=== PATIENT | male | born 1960 | race Caucasian/White ===

== ENCOUNTER → 2017-09-27 | Outpatient (CLI) | payer BC | END | disposition home or self-care (01) | LOC: KCIC MRI 09:21 | DX: S83.242A Other tear of medial meniscus, current injury, left knee, initial encounter (principal); M17.12 Unilateral primary osteoarthritis, left knee; M22.42 Chondromalacia patellae, left knee; M25.462 Effusion, left knee; I10 Essential (primary) hypertension; X58.XXXA Exposure to other specified factors, initial encounter; Y93.89 Activity, other specified; Y92.89 Other specified places as the place of occurrence of the external cause; Y99.8 Other external cause status | CPT/HCPCS: 73721 ==

== ENCOUNTER 2017-11-18 05:52 | Day surgery (SDC) | payer BC ==
[~2017-11-18 05:52] MED LIST: GENT5DRO3 OU; LOSA50TA6 PO; OMEP20TA63 PO
[2017-11-18] MEDS ORDERED: BUPIVACAINE-EPI 0.5%-1:200000 50 ML VIAL. ONE (06:11)
[2017-11-18] MEDS ORDERED: MORPHINE SULFATE 2 MG/ML VIAL. IV PRN (07:00)
[2017-11-18] MEDS ORDERED: fentaNYL PF VIAL 100 MCG/2 ML VIAL IV PRN ×2 (07:00)
[2017-11-18] MEDS ORDERED: PROCHLORPERAZINE 10 MG/2 ML VIAL. IV PRN (07:00)
[2017-11-18] MEDS ORDERED: ONDANSETRON PF 4 MG/2 ML VIAL. IV PRN (07:00)
[2017-11-18] MEDS ORDERED: IV RINGERS,LACTATED 1000ML 1,000 ML IV SCH (07:00)
[2017-11-18] MEDS ORDERED: LIDOCAINE 1% PF 2 ML VIAL. ID PRN (07:00)
[2017-11-18] MEDS ORDERED: HYDROmorphone 2 MG/ML VIAL IV PRN (07:00)
[2017-11-18] MEDS ORDERED: PROPOFOL 20 ML IV ONE (07:03)
[2017-11-18] MEDS ORDERED: ONDANSETRON PF 4 MG/2 ML VIAL. ONE ×2 (07:05)
[2017-11-18] MEDS ORDERED: DEXAMETHASONE SOD PHOS 20 MG/5 ML VIAL. ONE (07:05)
[2017-11-18] MEDS ORDERED: LIDOCAINE 2% PF Vial for OR 5 ML VIAL. ONE (07:05)
[2017-11-18] MEDS ORDERED: fentaNYL PF VIAL 100 MCG/2 ML VIAL ONE (07:06)
[2017-11-18] MEDS ORDERED: MIDAZOLAM HCL/PF 2 MG/2 ML VIAL. ONE (07:06)
--- NOTE | 2017-11-18 07:51 | DISCH ---
DISCHARGE INSTRUCTIONS Condition on Discharge Condition on Discharge: Stable Activity After Discharge Activity Instructions for Disc: Other, see below (slow advance to activities as tolerated) Weight Bearing Status after Di: As tolerated Diet after Discharge Diet after Discharge: Regular Wound Incision Care Wound/Incision Care: Ice to area for comfort, Change dressing (remove dressing in 2 days may then shower, no soaking until sutures removed) Contacting the DRMike after DC Call your doctor for: Concerns you may have Follow-Up Follow up with: Maria 10 days RACHEL ASHLEY MD Nov 18, 2017 07:51
[2017-11-18] MEDS ORDERED: HYDR-965 PO (07:52)
[2017-11-18] MEDS ORDERED: ePHEDrine PF IN SALINE 50 MG/5 ML DISP.SYRIN IV ONE (08:16)
[2017-11-18] MEDS ORDERED: BUPIVAC MPF-EPI 0.5%-1:200000 30 ML VIAL. INJ ONE (08:30)
[2017-11-18] MEDS ORDERED: KETOROLAC 30 MG/ML VIAL. ONE (08:31)
[2017-11-18] MEDS ORDERED: KETOROLAC 30 MG/ML VIAL. IV ONE (08:45)
--- NOTE | 2017-11-18 08:51 | PDOC4 ---
Operative Note Operative Note Date of surgery: 11/18/2017 Preoperative diagnosis: Medial meniscus tear left knee Postoperative diagnosis: Same Operative procedure: Left knee arthroscopy partial medial meniscectomy Anesthesia: Gen. Estimated blood loss: 5 mL Complications: None Operative indications: Sudhakar is a 56-year-old male with pain swelling mechanical symptoms particularly with pivoting and twisting on his left knee MRI confirmed the clinical suspicion of a medial meniscus tear. I had gone over with him the typical treatment with knee arthroscopy partial medial meniscectomy. The fact that I cannot undo any degenerative type changes which I think are generally minimal in his knee. We also covered the risks of possible infection continued pain nerve or blood vessel damage medical or other anesthetic complications among others. All his questions were answered he wishes to proceed with surgical evaluation and treatment Operative text: Patient was identified procedure verified patient placed in the supine position on the operating table. After adequate amounts of general anesthesia were administered a thigh tourniquet was placed in the left lower extremity was prepped and draped in standard sterile fashion. After timeout was performed patient procedure identified and verified the left lower extremity was exsanguinated by Esmarch bandage tourniquet inflated to 250 mmHg lateral portal was established a medial portal established using spinal needle localization and the knee joint was systematically examined. Patellofemoral joint was noted to be in excellent condition with no maltracking no loose bodies noted in the gutters or suprapatellar pouch medial meniscus was found to have a displaceable tear posterior horn of the medial meniscus which was trimmed back to stable tissue using arthroscopic punch and shaver to radiused the area to eliminate further stress risers. He had some minimal chondral fraying on the medial femoral condyle which was gently trimmed with arthroscopic shaver lateral meniscus and lateral compartment cartilage was well- preserved as was the ACL. The knee was toured again to verify no loose bodies were present the knee was drained of arthroscopic fluid portals closed with nylon suture and a total of about 25 mL of half percent plain Marcaine were infused into the fat pad and joint capsule area. Sterile dressings were applied. Toes were noted be warm pink find deflation of tourniquet after total tourniquet time approximately 16 minutes. He was returned recovery room in stable condition having tolerated procedure well RACHEL ASHLEY MD Nov 18, 2017 08:51
[2017-11-18 09:30] VITALS: BP 142/79
[2017-11-18] MEDS ORDERED: oxyCODONE/APAP 7.5/325 1 TAB TABLET PO PRN (09:30)
== END 2017-11-18 09:55 | disposition home or self-care (01) ==
LOC: SURG 05:52
PROVIDERS: ATTEND Orthopaedic Surgery
DX: S83.242A Other tear of medial meniscus, current injury, left knee, initial encounter (principal); I10 Essential (primary) hypertension; K21.9 Gastro-esophageal reflux disease without esophagitis; Z98.890 Other specified postprocedural states; F17.210 Nicotine dependence, cigarettes, uncomplicated; Z72.89 Other problems related to lifestyle; Z79.899 Other long term (current) drug therapy; Z88.8 Allergy status to other drugs, medicaments and biological substances; Z98.42 Cataract extraction status, left eye; Z98.41 Cataract extraction status, right eye; Z96.1 Presence of intraocular lens; X50.1XXA Overexertion from prolonged static or awkward postures, initial encounter; Y93.89 Activity, other specified; Y92.89 Other specified places as the place of occurrence of the external cause; Y99.8 Other external cause status
CPT/HCPCS: 29881; A7015; C1782; J0690; J1100; J1885; J2001; J2250; J2405; J2704; J3010; J3490

== ENCOUNTER 2020-10-25 21:16 | Inpatient (IN) | payer BC ==
[~2020-10-25] VITALS: Ht 182.9 cm; Wt 104.5 kg
[~2020-10-25 21:16] MED LIST changes: +HYDR-3165 PO; +LOSA-73 PO; -LOSA50TA6 PO
--- NOTE | 2020-10-25 21:28 | RAD ---
Exam: CT head INDICATION: Left-sided weakness TECHNIQUE: Sequential axial images through the head were obtained without the administration of IV co ntrast. Exposure: One or more of the following in the visualized dose reduction techniques were utilized for this examination: 1. Automated exposure control 2. Adjustment of the MA and/or KV according to patient size 3. Use of iterative of reconstructive technique Comparisons: None FINDINGS: There is a 2.0 x 1.6 cm hemorrhage noted within the right basal ganglia. There is no midline shift or sulcal effacement. Mild patchy evidence in the periventricular white matter. No acute vascular territory infarction is i dentified. Dorado-white distinction is preserved. The ventricular system is within normal limits without compression hydrocephalus. The basal cisterns are well maintained. The visualized portions of the paranasal sinuses and mastoid air cells are well-pneumatized. No acute fractures. IMPRESSION: A 2.0 x 1.6 cm hemorrhage noted within the right basal ganglia. Correlate for hypertension. FOR INTERNAL CODING PURPOSES Critical result: Findings discussed with González at 10/25/2020 9:25 PM. RESULT CODE: (C) Electronically signed by: Marce Dodd MD (10/25/2020 9:26 PM) [facility]
[2020-10-25 21:34] LABS: BASO % 1 % (0-3); EOS # 0.1 x10^3/uL (0.0-0.7); EOS % 1 % (0-3); HEMATOCRIT 42.8 % (39.0-53.0); HEMOGLOBIN 14.7 g/dL (13.0-17.5); LYMPH # 1.7 x10^3/uL (1.0-4.8); LYMPH % 22 % (24-48); MEAN CORPUSCULAR HEMOGLOBIN 35 pg (25-35); MEAN CORPUSCULAR HGB CONC 34 g/dL (31-37); MEAN CORPUSCULAR VOLUME 102 fL (79-100); MONO # 0.6 x10^3/uL (0.0-1.1); MONO % 9 % (0-9); NEUT % 68 % (31-73); PLATELET COUNT 164 x10^3/uL (140-400); RED BLOOD COUNT 4.19 x10^6/uL (4.30-5.70); RED CELL DISTRIBUTION WIDTH 12.9 % (11.5-14.5); WHITE BLOOD COUNT 7.4 x10^3/uL (4.0-11.0)
[2020-10-25 21:43] LABS: PROTHROMBIN TIME PATIENT 12.1 SEC (11.7-14.0)
--- NOTE | 2020-10-25 21:43 | PHYS DOC ---
General Adult EDM: Chief Complaint: NEURO SYMPTOMS/DEFICITS HPI: HPI: Patient is a 59 year old male with past medical history of HTN who presents with left-sided weakness. Symptoms started 8:19 PM. Witnessed by his . Started with facial droop and progressed rapidly to the left-sided weakness. He slumped in his chair. called EMS. On arrival the left-sided paralysis was evident to EMS. In route he began to have slurred speech. He is not on any blood thinning medications. No aspirin or Plavix. Only takes medications for hypertension, which she cannot recall at this time. No history of previous stroke. Review of Systems: Review of Systems: Constitutional: Denies fever or chills. [] Eyes: Denies change in visual acuity. [] HENT: Denies nasal congestion or sore throat. [] Respiratory: Denies cough or shortness of breath. [] Cardiovascular: Denies chest pain or edema. [] GI: Denies abdominal pain, nausea, vomiting, bloody stools or diarrhea. [] : Denies dysuria. [] Musculoskeletal: Denies back pain or joint pain. [] Integument: Denies rash. [] Neurologic: + Left-sided weakness, facial droop, and slurred speech [] Endocrine: Denies polyuria or polydipsia. [] Lymphatic: Denies swollen glands. [] Psychiatric: Denies depression or anxiety. [] Heart Score: C/O Chest Pain: No Risk Factors: Risk Factors: DM, Current or recent (<one month) smoker, HTN, HLP, family history of CAD, obesity. Risk Scores: Score 0 - 3: 2.5% MACE over next 6 weeks - Discharge Home Score 4 - 6: 20.3% MACE over next 6 weeks - Admit for Clinical Observation Score 7 - 10: 72.7% MACE over next 6 weeks - Early Invasive Strategies Allergies: Allergies: Allergies Coded Allergies Type Severity Reaction Last Updated Verified valsartan Allergy Intermediate MYALGIAS 11/18/17 Yes Physical Exam: PE: Constitutional: Well developed, well nourished, no acute distress. [] HENT: Normocephalic, atraumatic, bilateral external ears normal, oropharynx moist, no oral exudates, nose normal. [] Eyes: PERRLA, EOMI, intact visual kim. [] Neck: Normal range of motion, no tenderness, supple, no stridor. [] Cardiovascular:.Tachycardia. regular rhythm, no murmur [] Lungs & Thorax: Bilateral breath sounds clear to auscultation [] Abdomen: Bowel sounds normal, soft, no tenderness, no masses, no pulsatile masses. [] Skin: Warm, dry, no erythema, no rash. [] Back: No tenderness, no CVA tenderness. [] Extremities: No tenderness, no cyanosis, no clubbing, ROM intact, + bilateral pitting edema. [] Neurologic: Alert and oriented. Follows commands. Left-sided dense paralysis. Left-sided facial droop. Mild dysarthria/slurred speech. No aphasia. Complete left-sided sensory loss. NIH = 14 Psychologic: Affect normal, judgement normal, mood normal. [] EKG: EKG: Sinus rhythm. Rate 94. RBBB pattern. No acute ischemic changes. Normal axis. Normal intervals [] Radiology/Procedures: Radiology/Procedures: [] Impression: [facility] [address] [place] [address] IMAGING REPORT Signed PATIENT: REHAN GALICIA ACCOUNT: [id number] : 1960 LOCATION: ER AGE: 59 SEX: M EXAM STATUS: PRE ER ORD. PHYSICIAN: LIEN DAUGHERTY MD REASON: L sided weakness PROCEDURE: CT CODE STROKE HEAD WO Exam: CT head INDICATION: Left-sided weakness TECHNIQUE: Sequential axial images through the head were obtained without the administration of IV contrast. Exposure: One or more of the following in the visualized dose reduction techniques were utilized for this examination: 1. Automated exposure control 2. Adjustment of the MA and/or KV according to patient size 3. Use of iterative of reconstructive technique Comparisons: None FINDINGS: There is a 2.0 x 1.6 cm hemorrhage noted within the right basal ganglia. There is no midline shift or sulcal effacement. Mild patchy evidence in the periventricular white matter. No acute vascular territory infarction is identified. Dorado-white distinction is preserved. The ventricular system is within normal limits without compression hydrocephalus. The basal cisterns are well maintained. The visualized portions of the paranasal sinuses and mastoid air cells are well- pneumatized. No acute fractures. IMPRESSION: A 2.0 x 1.6 cm hemorrhage noted within the right basal ganglia. Correlate for hypertension. FOR INTERNAL CODING PURPOSES Critical result: Findings discussed with González at 10/25/2020 9:25 PM. RESULT CODE: (C) Electronically signed by: Marce Crouch MD (10/25/2020 9:26 PM) [facility] DICTATED and SIGNED BY: MARCE CROUCH MD DATE: 10/25/20 [id number] 0 [facility] [address] [place] [address] IMAGING REPORT Signed PATIENT: REHAN GALICIA ACCOUNT: [id number] : 1960 LOCATION: ER AGE: 59 SEX: M EXAM STATUS: REG ER ORD. PHYSICIAN: LIEN DAUGHERTY MD REASON: R thalamic bleed. Neurology requested to eval for AVM PROCEDURE: CT ANGIOGRAPHY HEAD AND NECK Exam: CTA head and neck INDICATION: Right thalamic bleeding TECHNIQUE: Sequential axial images through the head and neck obtained following the administration of 75 mL of Omni 300 IV contrast. Sagittal and coronal reformatted images were reconstructed from the axial data and reviewed. 3-D reformatted images were reconstructed from the axial data and reviewed. Exposure: One or more of the following in the visualized dose reduction techniques were utilized for this examination: 1. Automated exposure control 2. Adjustment of the MA and/or KV according to patient size 3. Use of iterative of reconstructive technique Comparisons: CT head without contrast FINDINGS: Visualized portions of the thoracic aorta are unremarkable. Standard three- vessel arch anatomy. Right common carotid artery is patent without evidence of stenosis, occlusion. Mild plaque at the origin of the right internal carotid artery stenosis stenosis. Left common carotid artery is patent without evidence of stenosis, occlusion or aneurysm. Mild plaque at the origin of the left internal carotid artery without significant stenosis. Right vertebral artery is patent to the basilar confluence without evidence of stenosis, occlusion or aneurysm. Left vertebral artery is patent to the basilar confluence without evidence of stenosis, occlusion or aneurysm. Visualized paraspinal soft tissues are unremarkable. CTA HEAD: Mild calcified plaque at the cavernous segment of the right internal carotid artery is patent without evidence of stenosis, occlusion or aneurysm. Right MCA is patent. Right NATHAN is patent. Mild calcified plaque cavernous segment left internal carotid artery. Left MCA is patent. Left NATHAN is patent. Basilar artery is patent without evidence of stenosis, occlusion or aneurysm. IMPRESSION: 1. No AV malformation or abnormal feeding vessel identified. 2. Mild plaque cavernous segment of the internal carotid arteries bilaterally without significant stenosis. 3. Mild plaque at the carotid bifurcation bilaterally without significant stenosis. Electronically signed by: Marce Crouch MD (10/25/2020 10:57 PM) [facility] DICTATED and SIGNED BY: MARCE CROUCH MD DATE: 10/25/20 [id number] 0 Course & Med Decision Making: Course & Med Decision Making Pertinent Labs and Imaging studies reviewed. (See chart for details) Patient 59-year-old male with a past medical history of HTN who presents with abrupt onset left-sided weakness and left-sided facial droop. Direct to CT. NIH = 14. CT non-contrast shows R basal ganglia hemorrhage. Deferred CTA initially due to the location being typical for hypertensive bleed. Blood pressure 150s SBP. Holding on any antihypertensive treatment for now with goal being <160. Discuss[address] Brito of neurology who agrees with BP goal 140-160 SBP. He recommends CTA and discussion with NSGY to see if this patient is appropriate to stay at [facility] vs transfer to another facility. NSGY consult placed. 2141 Discussed with NSGY ISRA. They agree with the above plan and after discussion with their attending, Dr. Durand, they feel he is appropriate for admission to our ICU. Accepted by hospitalist, Dr. Dugan. CTA showed no AVM. 2252 Dragon Disclaimer: Dragon Disclaimer: This electronic medical record was generated, in whole or in part, using a voice recognition dictation system. Departure Departure Impression: Primary Impression: Basal ganglia hemorrhage Additional Impressions: Hemorrhagic stroke Left hemiplegia Disposition: ADMITTED INPATIENT Admitting Physician: ALY (Ritchie) Condition: CRITICAL Referrals: DASH COLÓN MD (PCP) NIHSS Stroke Scale NIH Stroke Scale: NIH Stroke Scale Response (Comments) Value Level of Consciousness: 0 Alert/Responsive 0 LOC Questions: 0 Answers both correctly 0 LOC Commands: 0 Performs both tasks 0 Best Gaze: 0 Normal 0 Visual: 1 Partial hemianopia 1 Facial Palsy: 1 Minor paralysis 1 Motor - Left Arm 4 No movement 4 Motor - Right Arm 0 No drift 0 Motor - Left Leg 4 No movement 4 Motor: Right Leg 0 No drift 0 Limb Ataxia: 0 Absent 0 Sensory: 2 Severe to total loss 2 Best Language: 0 Normal 0 Dysathria: 1 Mild to moderate 1 Extinction and Inattention: 1 One sensory modality 1 Total 14 LIEN DAUGHERTY MD Oct 25, 2020 21:43
[2020-10-25 21:44] LABS: CALCIUM 7.4 mg/dL (8.5-10.1); CREATININE 0.7 mg/dL (0.7-1.3); GFR 114.6; POTASSIUM 3.2 mmol/L (3.5-5.1)
[2020-10-25] MEDS ORDERED: CONTRAST GIVEN. MC PRN (22:15)
[2020-10-25] MEDS ORDERED: IOHEXOL 300 MG/ML 100ML VIAL. IV ONE (22:30)
--- NOTE | 2020-10-25 23:00 | RAD ---
Exam: CTA head and neck INDICATION: Right thalamic bleeding TECHNIQUE: Sequential axial images through the head and neck obtained following the administration of 75 mL of Omni 300 IV contrast. Sagittal and coronal reformatted images were reconstructed from the a xial data and reviewed. 3-D reformatted images were reconstructed from the axial data and reviewed. Exposure: One or more of the following in the visualized dose reduction techniques were utilized for this examination: 1. Automated exposure control 2. Adjustment of the MA and/or KV according to patient size 3. Use of iterative of reconstructive technique Comparisons: CT head without contrast FINDINGS: Visualized portions of the thoracic aorta are unremarkable. Standard three-vessel arch anatomy. Right common carotid artery is patent without evidence of stenosis, occlusion. Mild plaque at the jennifer gin of the right internal carotid artery stenosis stenosis. Left common carotid artery is patent without evidence of stenosis, occlusion or aneurysm. Mild plaque at the origin of the left internal carotid artery without significant stenosis. Right vertebral artery is patent to the basilar confluence without evidence of stenosis, occlusion or aneurysm. Left vertebral artery is patent to the basilar confluence without evidence of stenosis, occlusion or aneurysm. Visualized paraspinal soft tissues are unremarkable. CTA HEAD: Mild calcified plaque at the cavernous segment of the right internal carotid artery is patent without evidence of stenosis, occlusion or aneurysm. Right MCA is patent. Right NATHAN is patent. Mild calcified plaque cavernous segment left internal carotid artery. Left MCA is patent. Left NATHAN is patent. Basilar artery is patent without evidence of stenosis, occlusion or aneurysm. IMPRESSION: 1. No AV malformation or abnormal feeding vessel identified. 2. Mild plaque cavernous segment of the internal carotid arteries bilaterally without significant st enosis. 3. Mild plaque at the carotid bifurcation bilaterally without significant stenosis. Electronically signed by: Marce Dodd MD (10/25/2020 10:57 PM) [facility]
[2020-10-26] VITALS (13 sets, daily range): BP systolic 94–137; BP diastolic 57–82
--- NOTE | 2020-10-26 02:25 | EKG ---
[facility] [address] [place] [address] Test Date: 2020-10-25 Test Time: 21:38:46 Pat Name: REHAN GALICIA Department: Room: Gender: M Shade [employer] Finisher: : 1960 Requested By: LIEN DAUGHERTY Order Number: [id number] Reading MD: Measurements Intervals [place] Rate: 94 P: 1 MT: 142 QRS: 19 QRSD: 98 T: 31 QT: 342 QTc: 433 Interpretive Statements SINUS RHYTHM INCOMPLETE RIGHT BUNDLE BRANCH BLOCK QRS(T) CONTOUR ABNORMALITY CONSISTENT WITH INFERIOR INFARCT PROBABLY OLD ABNORMAL ECG RI6.02 No previous ECG available for comparison
[2020-10-26] MEDS ORDERED: ALLO300T PO (06:01)
[2020-10-26] MEDS ORDERED: LISI-130 PO (06:01)
[2020-10-26] MEDS: ALLOPURINOL 300 MG TABLET. PO SCH (11:00)
--- NOTE | 2020-10-26 11:24 | HP ---
ADMIT DATE: 10/26/2020 CHIEF COMPLAINT: Neuro symptoms. 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 Basically, he presented last night with neuro symptoms. In particular, he had left-sided weakness. We were concerned, he was having a stroke. We did do some imaging, which confirmed he was having a thalamic bleed, about 1.6 x 2 cm. He has now been admitted to the ICU where he is being examined. PAST MEDICAL HISTORY: Hypertension. I suspect he might be noncompliant with his meds, but I am not sure on that. ALLERGIES: VALSARTAN. FAMILY HISTORY: Diabetes. 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 Does not drink, smoke or take drugs. MEDICATIONS: Reviewed. Please refer to the MRAD. REVIEW OF SYSTEMS: GENERAL: No history of weight change, weakness or fevers. SKIN: No bruising, hair changes or rashes. EYES: No blurred, double or loss of vision. NOSE AND THROAT: No history of nosebleeds, hoarseness or sore throat. HEART: No history of palpitations, chest pain or shortness of breath on exertion. LUNGS: Denies cough, hemoptysis, wheezing or shortness of breath. GASTROINTESTINAL: Denies changes in appetite, nausea, vomiting, diarrhea or constipation. GENITOURINARY: No history of frequency, urgency, hesitancy or nocturia. NEUROLOGIC: Denies history of numbness, tingling, tremor or weakness. PSYCHIATRIC: No history of panic, anxiety or depression. ENDOCRINE: No history of heat or cold intolerance, polyuria or polydipsia. EXTREMITIES: He complains of left leg and arm numbness and weakness, can barely move the left arm. LABORATORY DATA: White count 7, hemoglobin 14, platelets 164. Electrolytes are normal other than a low potassium of 3.2. INR 0.9. CT of the head shows a thalamic bleed, 1.6 x 2 cm. 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 The patient has been admitted to the ICU. We are closely monitoring his blood pressure. Neuro checks. Consult Neurosurgery. Physical therapy, occupational therapy, home meds. Deep venous thrombosis prophylaxis. Full code. CONSULTS: We consulted Neurosurgery, Neurology. PROGNOSIS: Guarded. KAREN/RENETTA/ADILIA DR: Dia TID: [id number]
[2020-10-26] MEDS: PANTOPRAZOLE 40 MG TABLET.DR. PO SCH (11:30)
--- NOTE | 2020-10-26 11:52 | RAD ---
RS Compliance Statement: One or more of the following individualized dose reduction techniques were utilized for this examinat ion: 1. Automated exposure control 2. Adjustment of the mA and/or kV according to patient size 3. Use of iterative reconstruction technique CT head without contrast 10/26/2020 11:00 AM INDICATION: Basal ganglia hemorrhage COMPARISON: 10/25/2020 CT head TECHNIQUE: Multiple axial CT images of the head were obtained from skull base through the vertex with out intravenous contrast. FINDINGS: Head: Ventricles, sulci and basal cisterns are within normal limits. There is no hydrocephalus. Dorado-white matter differentiation is normal. Stable right basal ganglia intraparenchymal hematoma measuring 2.6 x 2.3 x 3.0 cm (AP by transverse by craniocaudal). There is mass effect on the body of the right late ral ventricle without hydrocephalus. No intraventricular hemorrhage is identified. There is associate d cytotoxic edema with edema involving the putamen and right thalamus. Posterior fossa is normal in a ppearance. Visualized portions of the orbits are normal with exception of bilateral lens replacement. Paranasal sinuses are well aerated. Mastoid air cells are well aerated. Scalp and calvaria are normal. IMPRESSION: Stable right basal ganglia intraparenchymal hematoma with mass effect on right lateral ventricle. No hydrocephalus. Findings are similar to prior examination from 10/25/2020. Electronically signed by: Clair August MD (10/26/2020 11:49 AM) [id number]
--- NOTE | 2020-10-26 13:43 | PDOC ---
PROGRESS NOTES Date of Service DATE: 10/26/20 TIME: 13:37 Subjective Subjective Patient seen and examined consulted for right basal ganglia alert and oriented speech clear left hemiparesis CT with stable right basal ganglia intraparenchymal hematoma with mass effect on right lateral ventricle. No hydrocephalus BP control ok to feed and transfer to floor from NS standpoint d/w RN Objective Objective Vital Signs Date Time Temp Pulse Resp B/P (MAP) Pulse Ox O2 Delivery O2 Flow Rate FiO2 10/26/20 12:00 Room Air 10/26/20 09:00 62 18 110/63 (79) 96 10/26/20 08:00 98.0 98.0 10/26/20 07:00 3.0 Intake and Output 10/26/20 07:00 Intake Total 0 ml Balance 0 ml Intake Oral 0 ml Assessment Assessment Problems Medical Problems: (1) Basal ganglia hemorrhage Status: Acute (2) Hemorrhagic stroke Status: Acute (3) Left hemiplegia Status: Acute Comment Review of Relevant I have reviewed the following items july (where applicable) has been applied. Labs Laboratory Tests Test 10/25/20 21:27 White Blood Count 7.4 x10^3/uL (4.0-11.0) Red Blood Count 4.19 x10^6/uL (4.30-5.70) Hemoglobin 14.7 g/dL (13.0-17.5) Hematocrit 42.8 % (39.0-53.0) Mean Corpuscular Volume 102 fL (79-100) Mean Corpuscular Hemoglobin 35 pg (25-35) Mean Corpuscular Hemoglobin Concent 34 g/dL (31-37) Red Cell Distribution Width 12.9 % (11.5-14.5) Platelet Count 164 x10^3/uL (140-400) Neutrophils (%) (Auto) 68 % (31-73) Lymphocytes (%) (Auto) 22 % (24-48) Monocytes (%) (Auto) 9 % (0-9) Eosinophils (%) (Auto) 1 % (0-3) Basophils (%) (Auto) 1 % (0-3) Neutrophils # (Auto) 5.0 x10^3/uL (1.8-7.7) Lymphocytes # (Auto) 1.7 x10^3/uL (1.0-4.8) Monocytes # (Auto) 0.6 x10^3/uL (0.0-1.1) Eosinophils # (Auto) 0.1 x10^3/uL (0.0-0.7) Basophils # (Auto) 0.0 x10^3/uL (0.0-0.2) Prothrombin Time 12.1 SEC (11.7-14.0) Prothromb Time International Ratio 0.9 (0.8-1.1) Activated Partial Thromboplast Time 27 SEC (24-38) Sodium Level 139 mmol/L (136-145) Potassium Level 3.2 mmol/L (3.5-5.1) Chloride Level 106 mmol/L (98-107) Carbon Dioxide Level 21 mmol/L (21-32) Anion Gap 12 (6-14) Blood Urea Nitrogen 7 mg/dL (8-26) Creatinine 0.7 mg/dL (0.7-1.3) Estimated GFR (Cockcroft-Gault) 114.6 Glucose Level 82 mg/dL (70-99) Calcium Level 7.4 mg/dL (8.5-10.1) Troponin I Quantitative < 0.017 ng/mL (0.000-0.055) Laboratory Tests Test 10/25/20 21:27 White Blood Count 7.4 x10^3/uL (4.0-11.0) Red Blood Count 4.19 x10^6/uL (4.30-5.70) Hemoglobin 14.7 g/dL (13.0-17.5) Hematocrit 42.8 % (39.0-53.0) Mean Corpuscular Volume 102 fL (79-100) Mean Corpuscular Hemoglobin 35 pg (25-35) Mean Corpuscular Hemoglobin Concent 34 g/dL (31-37) Red Cell Distribution Width 12.9 % (11.5-14.5) Platelet Count 164 x10^3/uL (140-400) Neutrophils (%) (Auto) 68 % (31-73) Lymphocytes (%) (Auto) 22 % (24-48) Monocytes (%) (Auto) 9 % (0-9) Eosinophils (%) (Auto) 1 % (0-3) Basophils (%) (Auto) 1 % (0-3) Neutrophils # (Auto) 5.0 x10^3/uL (1.8-7.7) Lymphocytes # (Auto) 1.7 x10^3/uL (1.0-4.8) Monocytes # (Auto) 0.6 x10^3/uL (0.0-1.1) Eosinophils # (Auto) 0.1 x10^3/uL (0.0-0.7) Basophils # (Auto) 0.0 x10^3/uL (0.0-0.2) Prothrombin Time 12.1 SEC (11.7-14.0) Prothromb Time International Ratio 0.9 (0.8-1.1) Activated Partial Thromboplast Time 27 SEC (24-38) Sodium Level 139 mmol/L (136-145) Potassium Level 3.2 mmol/L (3.5-5.1) Chloride Level 106 mmol/L (98-107) Carbon Dioxide Level 21 mmol/L (21-32) Anion Gap 12 (6-14) Blood Urea Nitrogen 7 mg/dL (8-26) Creatinine 0.7 mg/dL (0.7-1.3) Estimated GFR (Cockcroft-Gault) 114.6 Glucose Level 82 mg/dL (70-99) Calcium Level 7.4 mg/dL (8.5-10.1) Troponin I Quantitative < 0.017 ng/mL (0.000-0.055) Medications Current Medications Nicardipine HCl 50 mg/Sodium Chloride 250 ml @ 25 mls/hr CONT PRN IV SEE I/O RECORD Last administered on 10/25/20at 22:59; Start 10/25/20 at 22:00 Iohexol (Omnipaque 300 Mg/ml) 75 ml 1X ONCE IV Last administered on 10/25/20at 22:39; Start 10/25/20 at 22:30; Stop 10/25/20 at 22:31; Status DC Info (CONTRAST GIVEN -- Rx MONITORING) 1 each PRN DAILY PRN SEE COMMENTS; Start 10/25/20 at 22:15; Stop 10/27/20 at 22:14 Allopurinol (Zyloprim) 300 mg DAILY PO ; Start 10/26/20 at 11:00 Lisinopril (Prinivil) 40 mg DAILY PO ; Start 10/26/20 at 11:00 Pantoprazole Sodium (Protonix) 40 mg DAILYAC PO ; Start 10/26/20 at 11:30 Active Scripts Active Reported Allopurinol 300 Mg Tablet 1 Tab PO DAILY Lisinopril 40 Mg Tablet 1 Tab PO DAILY Prilosec Otc (Omeprazole Magnesium) 20 Mg Tablet.dr 20 Mg PO DAILY Vitals/I & O Vital Sign - Last 24 Hours 10/25/20 10/25/20 10/25/20 10/25/20 21:20 21:24 21:32 21:42 Temp 98.4 98.4 Pulse 96 100 100 96 Resp 13 B/P (MAP) 150/92 (100) 158/97 (117) 152/91 (111) 146/87 (106) Pulse Ox 92 94 94 91 O2 Delivery Room Air Room Air Room Air Nasal Cannula O2 Flow Rate 2.0 10/25/20 10/25/20 10/25/20 10/25/20 21:47 22:02 22:36 22:52 Pulse 94 96 102 102 Resp 16 20 23 B/P (MAP) 156/89 (111) 152/82 (105) 168/93 (118) 168/85 (112) Pulse Ox 91 92 95 94 O2 Delivery Nasal Cannula Nasal Cannula Nasal Cannula Nasal Cannula O2 Flow Rate 2.0 2.0 2.0 2.0 10/25/20 10/25/20 10/25/20 10/25/20 23:07 23:22 23:37 23:52 Pulse 104 106 114 112 Resp 14 B/P (MAP) 149/72 (97) 137/75 (95) 151/81 (104) 147/76 (99) Pulse Ox 92 91 95 94 O2 Delivery Nasal Cannula Nasal Cannula Nasal Cannula Nasal Cannula O2 Flow Rate 2.0 2.0 2.0 2.0 10/26/20 10/26/20 10/26/20 10/26/20 00:07 00:22 00:37 00:52 Pulse 120 124 104 114 Resp 23 B/P (MAP) 153/76 (101) 145/74 (97) 128/59 (82) 152/88 (109) Pulse Ox 95 93 90 96 O2 Delivery Nasal Cannula Nasal Cannula Nasal Cannula Nasal Cannula O2 Flow Rate 2.0 2.0 2.0 3.0 10/26/20 10/26/20 10/26/20 10/26/20 01:07 01:22 01:37 01:52 Pulse 108 96 94 94 Resp 16 12 12 12 B/P (MAP) 133/78 (96) 135/69 (91) 136/66 (89) 130/59 (82) Pulse Ox 95 94 95 95 O2 Delivery Nasal Cannula Nasal Cannula Nasal Cannula Nasal Cannula O2 Flow Rate 3.0 3.0 3.0 3.0 10/26/20 10/26/20 10/26/20 10/26/20 02:07 02:22 02:37 02:52 Pulse 96 107 106 94 Resp 14 31 14 12 B/P (MAP) 159/106 (123) 167/111 (129) 141/75 (97) 145/73 (97) Pulse Ox 96 93 95 93 O2 Delivery Nasal Cannula Nasal Cannula Nasal Cannula Nasal Cannula O2 Flow Rate 3.0 3.0 3.0 3.0 10/26/20 10/26/20 10/26/20 10/26/20 03:07 03:22 03:37 03:52 Pulse 105 100 100 96 Resp 19 29 B/P (MAP) 137/75 (95) 160/88 (112) 150/77 (101) 151/73 (99) Pulse Ox 92 96 96 96 O2 Delivery Nasal Cannula Nasal Cannula Nasal Cannula Nasal Cannula O2 Flow Rate 3.0 3.0 3.0 3.0 10/26/20 10/26/20 10/26/20 10/26/20 04:07 04:22 04:37 04:52 Pulse 100 84 92 83 Resp 24 12 29 25 B/P (MAP) 138/77 (97) 135/70 (91) 137/97 (110) 168/82 (110) Pulse Ox 93 93 96 96 O2 Delivery Nasal Cannula Nasal Cannula Nasal Cannula Nasal Cannula O2 Flow Rate 3.0 3.0 3.0 3.0 10/26/20 10/26/20 10/26/20 10/26/20 05:57 06:29 07:00 08:00 Temp 97.7 97.1 97.7 97.1 Pulse 74 76 76 Resp 20 18 18 B/P (MAP) 124/74 (91) 103/66 (78) 103/66 (78) Pulse Ox 94 93 93 O2 Delivery Nasal Cannula Nasal Cannula Nasal Cannula Room Air O2 Flow Rate 3.0 3.0 3.0 10/26/20 10/26/20 10/26/20 08:00 09:00 12:00 Temp 98.0 98.0 Pulse 66 62 Resp 18 18 B/P (MAP) 97/57 (70) 110/63 (79) Pulse Ox 93 96 O2 Delivery Room Air Room Air Room Air Intake and Output 10/25/20 10/25/20 10/26/20 15:00 23:00 07:00 Intake Total 0 ml Balance 0 ml Justifications for Admission Other Justification BRANDI MELLO MD Oct 26, 2020 13:43
[2020-10-26] MEDS: LISINOPRIL 20 MG TABLET PO SCH (14:05)
[2020-10-26] MEDS: NICOTINE 14MG PATCH. TD PRN (15:56)
--- NOTE | 2020-10-26 16:39 | PDOC2 ---
CONSULT Date of Consult Date of Consult DATE: 10/26/20 TIME: 16:38 Reason for Consult Reason for Consult: CVA Identification/Chief Complaint Chief Complaint left side weakness History of Present Illness Reason for Visit: This patient is 59-year-old man Who presented to the emergency room with complaint of left-sided weakness. Patient not feeling well day prior to p resentation. Information obtained from patient, patient's family. Patient was having left-sided weakness, left facial asymmetry. Patient had elevated blood pressures on presentation Patient was having difficulty with gait balance. Patient presented to the emergency room patient was having left-sided weakness some word-finding difficulty. Patient denies any complaint of headache nausea or vomiting chest pain shortness of breath. Current Problem List Problem List Problems Medical Problems: (1) Basal ganglia hemorrhage Status: Acute (2) Hemorrhagic stroke Status: Acute (3) Left hemiplegia Status: Acute Current Medications Current Medications Current Medications Nicardipine HCl 50 mg/Sodium Chloride 250 ml @ 25 mls/hr CONT PRN IV SEE I/O RECORD Last administered on 10/25/20at 22:59; Start 10/25/20 at 22:00 Iohexol (Omnipaque 300 Mg/ml) 75 ml 1X ONCE IV Last administered on 10/25/20at 22:39; Start 10/25/20 at 22:30; Stop 10/25/20 at 22:31; Status DC Info (CONTRAST GIVEN -- Rx MONITORING) 1 each PRN DAILY PRN MC SEE COMMENTS; Start 10/25/20 at 22:15; Stop 10/27/20 at 22:14 Allopurinol (Zyloprim) 300 mg DAILY PO ; Start 10/26/20 at 11:00 Lisinopril (Prinivil) 40 mg DAILY PO Last administered on 10/26/20at 14:05; Start 10/26/20 at 11:00 Pantoprazole Sodium (Protonix) 40 mg DAILYAC PO ; Start 10/26/20 at 11:30 Nicotine (Nicoderm Cq 14mg) 1 patch PRN DAILY PRN TD SMOKING CESSATION Last administered on 10/26/20at 15:56; Start 10/26/20 at 15:30 Active Scripts Active Reported Allopurinol 300 Mg Tablet 1 Tab PO DAILY Lisinopril 40 Mg Tablet 1 Tab PO DAILY Prilosec Otc (Omeprazole Magnesium) 20 Mg Tablet.dr 20 Mg PO DAILY Allergies Allergies: Coded Allergies: valsartan (Verified Allergy, Intermediate, MYALGIAS, 11/18/17) Physical Exam Physical Exam General no acute distress. HEENT: Normocephalic and atraumatic. NECK: Supple without bruit Respiratory: Clear to auscultation bilaterally Heart: Regular rate and rhythm, S1S2 normal NEUROLOGIC: Mental status Alert oriented. Cranial nerve equally reactive pupils, and intact extraocular movements. Left facial asymmetry. Palate elevates and tongue protrudes in midline. Reflexes are 1-2 with flexor plantar responses. Coordination no dysmetria Strength able to move right side left side weakness more in upper than lower ext Sensory exam is intact for light touch and pinprick more on right compared to left side.. Gait in bed. A 10-point review of systems was obtained. Other than the history of present illness the remainder of the review of systems is negative. Vitals VITALS Vital Signs Date Time Temp Pulse Resp B/P (MAP) Pulse Ox O2 Delivery O2 Flow Rate FiO2 10/26/20 15:00 72 18 137/76 (96) 92 Room Air 10/26/20 12:00 98.6 98.6 10/26/20 07:00 3.0 Labs Labs Laboratory Tests Test 10/25/20 21:27 White Blood Count 7.4 x10^3/uL (4.0-11.0) Red Blood Count 4.19 x10^6/uL (4.30-5.70) Hemoglobin 14.7 g/dL (13.0-17.5) Hematocrit 42.8 % (39.0-53.0) Mean Corpuscular Volume 102 fL (79-100) Mean Corpuscular Hemoglobin 35 pg (25-35) Mean Corpuscular Hemoglobin Concent 34 g/dL (31-37) Red Cell Distribution Width 12.9 % (11.5-14.5) Platelet Count 164 x10^3/uL (140-400) Neutrophils (%) (Auto) 68 % (31-73) Lymphocytes (%) (Auto) 22 % (24-48) Monocytes (%) (Auto) 9 % (0-9) Eosinophils (%) (Auto) 1 % (0-3) Basophils (%) (Auto) 1 % (0-3) Neutrophils # (Auto) 5.0 x10^3/uL (1.8-7.7) Lymphocytes # (Auto) 1.7 x10^3/uL (1.0-4.8) Monocytes # (Auto) 0.6 x10^3/uL (0.0-1.1) Eosinophils # (Auto) 0.1 x10^3/uL (0.0-0.7) Basophils # (Auto) 0.0 x10^3/uL (0.0-0.2) Prothrombin Time 12.1 SEC (11.7-14.0) Prothromb Time International Ratio 0.9 (0.8-1.1) Activated Partial Thromboplast Time 27 SEC (24-38) Sodium Level 139 mmol/L (136-145) Potassium Level 3.2 mmol/L (3.5-5.1) Chloride Level 106 mmol/L (98-107) Carbon Dioxide Level 21 mmol/L (21-32) Anion Gap 12 (6-14) Blood Urea Nitrogen 7 mg/dL (8-26) Creatinine 0.7 mg/dL (0.7-1.3) Estimated GFR (Cockcroft-Gault) 114.6 Glucose Level 82 mg/dL (70-99) Calcium Level 7.4 mg/dL (8.5-10.1) Troponin I Quantitative < 0.017 ng/mL (0.000-0.055) Laboratory Tests Test 10/25/20 21:27 White Blood Count 7.4 x10^3/uL (4.0-11.0) Red Blood Count 4.19 x10^6/uL (4.30-5.70) Hemoglobin 14.7 g/dL (13.0-17.5) Hematocrit 42.8 % (39.0-53.0) Mean Corpuscular Volume 102 fL (79-100) Mean Corpuscular Hemoglobin 35 pg (25-35) Mean Corpuscular Hemoglobin Concent 34 g/dL (31-37) Red Cell Distribution Width 12.9 % (11.5-14.5) Platelet Count 164 x10^3/uL (140-400) Neutrophils (%) (Auto) 68 % (31-73) Lymphocytes (%) (Auto) 22 % (24-48) Monocytes (%) (Auto) 9 % (0-9) Eosinophils (%) (Auto) 1 % (0-3) Basophils (%) (Auto) 1 % (0-3) Neutrophils # (Auto) 5.0 x10^3/uL (1.8-7.7) Lymphocytes # (Auto) 1.7 x10^3/uL (1.0-4.8) Monocytes # (Auto) 0.6 x10^3/uL (0.0-1.1) Eosinophils # (Auto) 0.1 x10^3/uL (0.0-0.7) Basophils # (Auto) 0.0 x10^3/uL (0.0-0.2) Prothrombin Time 12.1 SEC (11.7-14.0) Prothromb Time International Ratio 0.9 (0.8-1.1) Activated Partial Thromboplast Time 27 SEC (24-38) Sodium Level 139 mmol/L (136-145) Potassium Level 3.2 mmol/L (3.5-5.1) Chloride Level 106 mmol/L (98-107) Carbon Dioxide Level 21 mmol/L (21-32) Anion Gap 12 (6-14) Blood Urea Nitrogen 7 mg/dL (8-26) Creatinine 0.7 mg/dL (0.7-1.3) Estimated GFR (Cockcroft-Gault) 114.6 Glucose Level 82 mg/dL (70-99) Calcium Level 7.4 mg/dL (8.5-10.1) Troponin I Quantitative < 0.017 ng/mL (0.000-0.055) Assessment/Plan Assessment/Plan 59-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 Patient had CT scan done brain showing right thalamic hemorrhage. Patient was admitted to ICU for further workup, clos e monitoring. Hypertension continue treat and monitor. Keep systolic blood pressure 140 to 160. Patient is getting close monitoring, further workup. Check lipid profile, started on statin. Check 2-D echo PT OT speech evaluation Patient had repeat CT scan done brain showing stable right basal ganglia hematoma no hydrocephalus noted CTA head and neck did not show any AV malformation no significant stenosis or aneurysm noted Continue medical management. Plan discussed at length. Thank you for allowing me to take part in this patient's care. Please not hesitate to contact me with questions. Transcribed using dictation device. The dictation could contain irregularities inherent in the voice to text conversion software, which may not be detected during the document review process. Please contact our office in case of any confusion or for any clarification, as needed. KEO CAT MD Oct 26, 2020 16:39
--- NOTE | 2020-10-26 17:29 | NUR ---
PT TRANSFERRED TO ROOM 650 VIA BED ACCOMPANIED BY RN, PT . REPORT GIVEN TO JARON WOODS. ALL VSS AT TRANSFER.
[2020-10-26] MEDS ORDERED: ACETAMINOPHEN 325 MG TABLET. PO PRN (19:15)
[2020-10-26] MEDS: ATORVASTATIN CALCIUM 20 MG TABLET PO SCH (20:50)
[2020-10-27 03:01] VITALS: BP 95/57
[2020-10-27 08:00] VITALS: BP 109/59
[2020-10-27] MEDS: LISINOPRIL 20 MG TABLET PO SCH ×2 (09:00→09:17)
[2020-10-27] MEDS ORDERED: ONDANSETRON PF 4 MG/2 ML VIAL. IVP PRN (09:00)
--- NOTE | 2020-10-27 09:13 | PDOC ---
[facility] PROGRESS NOTE Date of Service DOS: DATE: 10/27/20 TIME: 08:56 Chief Complaint Chief Complaint A/P: Left sided weakness - hemorrhagic CVA of right thalamus Hypertensive emergency - with acute CVA, hemorrhagic. Nicardipine gtt Hypokalemia - replaced Macrocytosis - check B12 Keep systolic blood pressure 140 to 160. Check lipid profile, started on statin. Check 2-D echo PT OT speech evaluation Patient had repeat CT scan done brain showing stable right basal ganglia hematoma History of Present Illness History of Present Illness Mr Boyce is a 59 year old male with past medical history of HTN who presented with left-sided weakness. Symptoms started 8:19 PM on 10/25/2020. Witnessed by his . Started with facial droop and progressed rapidly to the left-sided weakness. He slumped in his chair. called EMS. On arrival the left-sided paralysis was evident to EMS. In route he began to have slurred speech. He is not on any blood thinning medications. No aspirin or Plavix. Only takes medications for hypertension. No history of previous stroke. CT head revealed 2 x 1.6 cm hemorrhage in right basal ganglia and no aneursyms on CTA. Admitted to ICU for care 10/26: Repeat CT unchanged, transferred out of ICU Afebrile. No hypoxia. Unable to move his left hand or left leg. Is awaiting discussion for rehab. Vitals/I&O Vitals/I&O: Vital Signs Date Time Temp Pulse Resp B/P (MAP) Pulse Ox O2 Delivery O2 Flow Rate FiO2 10/27/20 03:01 98.5 56 18 95/57 (70) 97 Room Air 98.5 10/26/20 07:00 3.0 I & O 10/26/20 10/26/20 10/27/20 15:00 23:00 07:00 Intake Total 0 ml 1340 ml 0 ml Output Total 200 ml 200 ml Balance 0 ml 1140 ml -200 ml Physical Exam General: Alert, Oriented X3, Cooperative Assessment and Plan Assessmemt and Plan Problems Medical Problems: (1) Basal ganglia hemorrhage Status: Acute (2) Hemorrhagic stroke Status: Acute (3) Left hemiplegia Status: Acute Comment Review of Relevant I have reviewed the following items july (where applicable) has been applied. Medications: Current Medications Medications (Trade) Dose Ordered Sig/Karen Route PRN Reason Start Time Stop Time Status Last Admin Dose Admin Lisinopril (Prinivil) 40 mg DAILY PO 10/26/20 11:00 10/26/20 14:05 Nicotine (Nicoderm Cq 14mg) 1 patch PRN DAILY PRN TD SMOKING CESSATION 10/26/20 15:30 10/26/20 15:56 Atorvastatin Calcium (Lipitor) 20 mg QHS PO 10/26/20 21:00 10/26/20 20:50 Justifications for Admission Other Justification BAL MAZA MD Oct 27, 2020 09:13
[2020-10-27] MEDS: PANTOPRAZOLE 40 MG TABLET.DR. PO SCH (09:17)
[2020-10-27] MEDS: ALLOPURINOL 300 MG TABLET. PO SCH (09:17)
[2020-10-27 09:26] LABS: BASO % 1 % (0-3); EOS # 0.1 x10^3/uL (0.0-0.7); EOS % 2 % (0-3); HEMATOCRIT 39.3 % (39.0-53.0); HEMOGLOBIN 13.7 g/dL (13.0-17.5); LYMPH # 1.7 x10^3/uL (1.0-4.8); LYMPH % 25 % (24-48); MEAN CORPUSCULAR HEMOGLOBIN 36 pg (25-35); MEAN CORPUSCULAR HGB CONC 35 g/dL (31-37); MEAN CORPUSCULAR VOLUME 102 fL (79-100); MONO # 0.6 x10^3/uL (0.0-1.1); MONO % 9 % (0-9); NEUT # 4.2 x10^3/uL (1.8-7.7); NEUT % 64 % (31-73); PLATELET COUNT 139 x10^3/uL (140-400); RED BLOOD COUNT 3.86 x10^6/uL (4.30-5.70); RED CELL DISTRIBUTION WIDTH 13.1 % (11.5-14.5); WHITE BLOOD COUNT 6.6 x10^3/uL (4.0-11.0)
[2020-10-27 09:49] LABS: CALCIUM 8.7 mg/dL (8.5-10.1); CREATININE 0.8 mg/dL (0.7-1.3); GFR 98.3; POTASSIUM 3.8 mmol/L (3.5-5.1)
[2020-10-27 10:00] LABS: CHOLESTEROL/HDL RATIO 3.1
--- NOTE | 2020-10-27 10:26 | NUR ---
SS following for discharge planning. SS reviewed pt chart and discussed with pt RN. Pt is from home with spouse and is currently on room air. COVID19 test pending. PT/OT ordered. Probable need for inpatient rehabilitation. SS will continue to follow for discharge planning.
[2020-10-27 11:00] VITALS: BP 118/70
--- NOTE | 2020-10-27 11:00 | PDOC ---
PROGRESS NOTES Date of Service DATE: 10/27/20 TIME: 10:55 Assessment Problems Medical Problems: (1) Basal ganglia hemorrhage Status: Acute (2) Hemorrhagic stroke Status: Acute (3) Left hemiplegia Status: Acute Right basal ganglia intraparenchymal hematoma, negative CT angiogram Hyperlipidemia, statin started, consider high-dose statin therapy, he can discuss with his primary physician Plan Rehabilitation modalities He will need inpatient rehab Await echocardiogram Subjective no complaints, denies headache Objective Vital Signs Date Time Temp Pulse Resp B/P (MAP) Pulse Ox O2 Delivery O2 Flow Rate FiO2 10/27/20 08:00 98.6 61 16 109/59 (76) 95 Room Air 98.6 10/26/20 07:00 3.0 Intake and Output 10/27/20 07:00 Intake Total 1340 ml Output Total 400 ml Balance 940 ml Intake Oral 1340 ml Output Urine Total 400 ml # Voids 4 PHYSICAL EXAM Alert. Oriented to time, place and person. PERRL. EOMI. CN: Mild left central facial weakness Muscle tone: normal. Muscle strength: 2/5 left arm, 3/5 left leg, 5/5 right-sided extremities DTR: 2+ Plantar reflex: Flexor Gait: not examined in bed. Sensory exam: no abnormal findings. No cerebellar signs out of proportion to the hemiparesis. Review of Relevant I have reviewed the following items july (where applicable) has been applied. Labs Laboratory Tests Test 10/25/20 21:27 10/27/20 08:40 White Blood Count 7.4 x10^3/uL (4.0-11.0) 6.6 x10^3/uL (4.0-11.0) Red Blood Count 4.19 x10^6/uL (4.30-5.70) 3.86 x10^6/uL (4.30-5.70) Hemoglobin 14.7 g/dL (13.0-17.5) 13.7 g/dL (13.0-17.5) Hematocrit 42.8 % (39.0-53.0) 39.3 % (39.0-53.0) Mean Corpuscular Volume 102 fL (79-100) 102 fL (79-100) Mean Corpuscular Hemoglobin 35 pg (25-35) 36 pg (25-35) Mean Corpuscular Hemoglobin Concent 34 g/dL (31-37) 35 g/dL (31-37) Red Cell Distribution Width 12.9 % (11.5-14.5) 13.1 % (11.5-14.5) Platelet Count 164 x10^3/uL (140-400) 139 x10^3/uL (140-400) Neutrophils (%) (Auto) 68 % (31-73) 64 % (31-73) Lymphocytes (%) (Auto) 22 % (24-48) 25 % (24-48) Monocytes (%) (Auto) 9 % (0-9) 9 % (0-9) Eosinophils (%) (Auto) 1 % (0-3) 2 % (0-3) Basophils (%) (Auto) 1 % (0-3) 1 % (0-3) Neutrophils # (Auto) 5.0 x10^3/uL (1.8-7.7) 4.2 x10^3/uL (1.8-7.7) Lymphocytes # (Auto) 1.7 x10^3/uL (1.0-4.8) 1.7 x10^3/uL (1.0-4.8) Monocytes # (Auto) 0.6 x10^3/uL (0.0-1.1) 0.6 x10^3/uL (0.0-1.1) Eosinophils # (Auto) 0.1 x10^3/uL (0.0-0.7) 0.1 x10^3/uL (0.0-0.7) Basophils # (Auto) 0.0 x10^3/uL (0.0-0.2) 0.0 x10^3/uL (0.0-0.2) Prothrombin Time 12.1 SEC (11.7-14.0) Prothromb Time International Ratio 0.9 (0.8-1.1) Activated Partial Thromboplast Time 27 SEC (24-38) Sodium Level 139 mmol/L (136-145) 134 mmol/L (136-145) Potassium Level 3.2 mmol/L (3.5-5.1) 3.8 mmol/L (3.5-5.1) Chloride Level 106 mmol/L (98-107) 99 mmol/L (98-107) Carbon Dioxide Level 21 mmol/L (21-32) 27 mmol/L (21-32) Anion Gap 12 (6-14) 8 (6-14) Blood Urea Nitrogen 7 mg/dL (8-26) 10 mg/dL (8-26) Creatinine 0.7 mg/dL (0.7-1.3) 0.8 mg/dL (0.7-1.3) Estimated GFR (Cockcroft-Gault) 114.6 98.3 Glucose Level 82 mg/dL (70-99) 109 mg/dL (70-99) Calcium Level 7.4 mg/dL (8.5-10.1) 8.7 mg/dL (8.5-10.1) Troponin I Quantitative < 0.017 ng/mL (0.000-0.055) Triglycerides Level 197 mg/dL (0-150) Cholesterol Level 188 mg/dL (0-200) LDL Cholesterol, Calculated 88 mg/dL (0-100) VLDL Cholesterol, Calculated 39 mg/dL (0-40) Non-HDL Cholesterol Calculated 127 mg/dL (0-129) HDL Cholesterol 61 mg/dL (40-60) Cholesterol/HDL Ratio 3.1 Laboratory Tests Test 10/27/20 08:40 White Blood Count 6.6 x10^3/uL (4.0-11.0) Red Blood Count 3.86 x10^6/uL (4.30-5.70) Hemoglobin 13.7 g/dL (13.0-17.5) Hematocrit 39.3 % (39.0-53.0) Mean Corpuscular Volume 102 fL (79-100) Mean Corpuscular Hemoglobin 36 pg (25-35) Mean Corpuscular Hemoglobin Concent 35 g/dL (31-37) Red Cell Distribution Width 13.1 % (11.5-14.5) Platelet Count 139 x10^3/uL (140-400) Neutrophils (%) (Auto) 64 % (31-73) Lymphocytes (%) (Auto) 25 % (24-48) Monocytes (%) (Auto) 9 % (0-9) Eosinophils (%) (Auto) 2 % (0-3) Basophils (%) (Auto) 1 % (0-3) Neutrophils # (Auto) 4.2 x10^3/uL (1.8-7.7) Lymphocytes # (Auto) 1.7 x10^3/uL (1.0-4.8) Monocytes # (Auto) 0.6 x10^3/uL (0.0-1.1) Eosinophils # (Auto) 0.1 x10^3/uL (0.0-0.7) Basophils # (Auto) 0.0 x10^3/uL (0.0-0.2) Sodium Level 134 mmol/L (136-145) Potassium Level 3.8 mmol/L (3.5-5.1) Chloride Level 99 mmol/L (98-107) Carbon Dioxide Level 27 mmol/L (21-32) Anion Gap 8 (6-14) Blood Urea Nitrogen 10 mg/dL (8-26) Creatinine 0.8 mg/dL (0.7-1.3) Estimated GFR (Cockcroft-Gault) 98.3 Glucose Level 109 mg/dL (70-99) Calcium Level 8.7 mg/dL (8.5-10.1) Triglycerides Level 197 mg/dL (0-150) Cholesterol Level 188 mg/dL (0-200) LDL Cholesterol, Calculated 88 mg/dL (0-100) VLDL Cholesterol, Calculated 39 mg/dL (0-40) Non-HDL Cholesterol Calculated 127 mg/dL (0-129) HDL Cholesterol 61 mg/dL (40-60) Cholesterol/HDL Ratio 3.1 Medications Current Medications Nicardipine HCl 50 mg/Sodium Chloride 250 ml @ 25 mls/hr CONT PRN IV SEE I/O RECORD Last administered on 10/25/20at 22:59; Start 10/25/20 at 22:00 Iohexol (Omnipaque 300 Mg/ml) 75 ml 1X ONCE IV Last administered on 10/25/20at 22:39; Start 10/25/20 at 22:30; Stop 10/25/20 at 22:31; Status DC Info (CONTRAST GIVEN -- Rx MONITORING) 1 each PRN DAILY PRN MC SEE COMMENTS; Start 10/25/20 at 22:15; Stop 10/27/20 at 22:14 Allopurinol (Zyloprim) 300 mg DAILY PO Last administered on 10/27/20at 09:17; Start 10/26/20 at 11:00 Lisinopril (Prinivil) 40 mg DAILY PO Last administered on 10/26/20at 14:05; Start 10/26/20 at 11:00 Pantoprazole Sodium (Protonix) 40 mg DAILYAC PO Last administered on 10/27/20at 09:17; Start 10/26/20 at 11:30 Nicotine (Nicoderm Cq 14mg) 1 patch PRN DAILY PRN TD SMOKING CESSATION Last administered on 10/26/20at 15:56; Start 10/26/20 at 15:30 Atorvastatin Calcium (Lipitor) 20 mg QHS PO Last administered on 10/26/20at 20:50; Start 10/26/20 at 21:00 Acetaminophen (Tylenol) 650 mg PRN Q8HRS PRN PO MILD PAIN / TEMP > 100.3'F; Start 10/26/20 at 19:15 Ondansetron HCl (Zofran) 4 mg PRN Q4HRS PRN IVP NAUSEA/VOMITING; Start 10/27/20 at 09:00 Psyllium Hydrophilic Mucilloid (Metamucil Fiber Packet) 1 pkt QHS PO ; Start 10/27/20 at 21:00 Active Scripts Active Reported Allopurinol 300 Mg Tablet 1 Tab PO DAILY Lisinopril 40 Mg Tablet 1 Tab PO DAILY Prilosec Otc (Omeprazole Magnesium) 20 Mg Tablet.dr 20 Mg PO DAILY Vitals/I & O Vital Sign - Last 24 Hours 10/26/20 10/26/20 10/26/20 10/26/20 11:00 12:00 12:00 13:00 Temp 98.6 98.6 Pulse 62 70 68 Resp 18 18 18 B/P (MAP) 108/77 (87) 112/60 (77) 135/82 (99) Pulse Ox 92 95 92 O2 Delivery Room Air Room Air Room Air Room Air 10/26/20 10/26/20 10/26/20 10/26/20 14:00 14:05 15:00 17:15 Temp 98.2 98.2 Pulse 74 98 72 66 Resp 18 18 20 B/P (MAP) 114/69 (84) 114/69 137/76 (96) 120/59 (79) Pulse Ox 92 92 95 O2 Delivery Room Air Room Air Room Air 10/26/20 10/26/20 10/26/20 10/26/20 18:15 19:32 19:50 22:46 Temp 97.7 98.8 97.7 98.8 Pulse 70 64 Resp 16 16 B/P (MAP) 108/57 (74) 94/63 (73) Pulse Ox 93 95 O2 Delivery Room Air Room Air Room Air Room Air 10/27/20 10/27/20 03:01 08:00 Temp 98.5 98.6 98.5 98.6 Pulse 56 61 Resp 18 16 B/P (MAP) 95/57 (70) 109/59 (76) Pulse Ox 97 95 O2 Delivery Room Air Room Air Intake and Output 10/26/20 10/26/20 10/27/20 15:00 23:00 07:00 Intake Total 0 ml 1340 ml 0 ml Output Total 200 ml 200 ml Balance 0 ml 1140 ml -[address] head without contrast 10/26/2020 11:00 AM INDICATION: Basal ganglia hemorrhage COMPARISON: 10/25/2020 CT head TECHNIQUE: Multiple axial CT images of the head were obtained from skull base through the vertex without intravenous contrast. FINDINGS: Head: Ventricles, sulci and basal cisterns are within normal limits. There is no h ydrocephalus. [place]-white matter differentiation is normal. Stable right basal ganglia intraparenchymal hematoma measuring 2.6 x 2.3 x 3.0 cm (AP by transverse by craniocaudal). There is mass effect on the body of the right lateral ventricle without hydrocephalus. No intraventricular hemorrhage is identified. There is associated cytotoxic edema with edema involving the putamen and right thalamus. Posterior fossa is normal in appearance. Visualized portions of the orbits are normal with exception of bilateral lens replacement. Paranasal sinuses are well aerated. Mastoid air cells are well aerated. Scalp and calvaria are normal. IMPRESSION: Stable right basal ganglia intraparenchymal hematoma with mass effect on right lateral ventricle. No hydrocephalus. Findings are similar to prior examination from 10/25/2020. CTA head and neck INDICATION: Right thalamic bleeding TECHNIQUE: Sequential axial images through the head and neck obtained following the administration of 75 mL of Omni 300 IV contrast. Sagittal and coronal reformatted images were reconstructed from the axial data and reviewed. 3-D reformatted images were reconstructed from the axial data and reviewed. Exposure: One or more of the following in the visualized dose reduction techniques were utilized for this examination: 1. Automated exposure control 2. Adjustment of the MA and/or KV according to patient size 3. Use of iterative of reconstructive technique Comparisons: CT head without contrast FINDINGS: Visualized portions of the thoracic aorta are unremarkable. Standard three- vessel arch anatomy. Right common carotid artery is patent without evidence of stenosis, occlusion. Mild plaque at the origin of the right internal carotid artery stenosis stenosis. Left common carotid artery is patent without evidence of stenosis, occlusion or aneurysm. Mild plaque at the origin of the left internal carotid artery without significant stenosis. Right vertebral artery is patent to the basilar confluence without evidence of stenosis, occlusion or aneurysm. Left vertebral artery is patent to the basilar confluence without evidence of stenosis, occlusion or aneurysm. Visualized paraspinal soft tissues are unremarkable. CTA HEAD: Mild calcified plaque at the cavernous segment of the right internal carotid ar sharee is patent without evidence of stenosis, occlusion or aneurysm. Right MCA is patent. Right NATHAN is patent. Mild calcified plaque cavernous segment left internal carotid artery. Left MCA is patent. Left NATHAN is patent. Basilar artery is patent without evidence of stenosis, occlusion or aneurysm. IMPRESSION: 1. No AV malformation or abnormal feeding vessel identified. 2. Mild plaque cavernous segment of the internal carotid arteries bilaterally without significant stenosis. 3. Mild plaque at the carotid bifurcation bilaterally without significant stenosis. Justicifation of Admission Dx: Justifications for Admission: Justification of Admission Dx: Yes Comments: hemorrhagic stroke JEANNA GONZALEZ MD Oct 27, 2020 11:00
[2020-10-27] MEDS ORDERED: CYANOCOBALAMIN (VITAMIN B-12) 1,000 MCG/ML VIAL. IM ONE (17:00)
[2020-10-27] MEDS ORDERED: POLYVINYL ALCOHOL 1.4% OPHTH SOLUTION 15ML BOTTLE. OU PRN (17:00)
[2020-10-27] MEDS ORDERED: LABETALOL 20 MG/4 ML DISP.SYRIN. IVP PRN (17:00)
[2020-10-27 19:00] VITALS: BP 127/71
[2020-10-27] MEDS: ATORVASTATIN CALCIUM 20 MG TABLET PO SCH (21:31)
[2020-10-27] MEDS: PSYLLIUM HUSK (SUGAR FREE) 1 PKT PACKET PO SCH (21:31)
[2020-10-27 23:00] VITALS: BP 132/79
[2020-10-28 02:53] VITALS: BP 135/79
[2020-10-28] MEDS: PANTOPRAZOLE 40 MG TABLET.DR. PO SCH (05:50)
[2020-10-28 07:00] VITALS: BP 139/80
[2020-10-28 07:15] LABS: BASO % 1 % (0-3); EOS # 0.2 x10^3/uL (0.0-0.7); EOS % 3 % (0-3); HEMATOCRIT 40.3 % (39.0-53.0); HEMOGLOBIN 13.9 g/dL (13.0-17.5); LYMPH # 1.9 x10^3/uL (1.0-4.8); LYMPH % 24 % (24-48); MEAN CORPUSCULAR HEMOGLOBIN 35 pg (25-35); MEAN CORPUSCULAR HGB CONC 34 g/dL (31-37); MEAN CORPUSCULAR VOLUME 103 fL (79-100); MONO # 0.6 x10^3/uL (0.0-1.1); MONO % 8 % (0-9); NEUT # 5.2 x10^3/uL (1.8-7.7); NEUT % 65 % (31-73); PLATELET COUNT 140 x10^3/uL (140-400); RED BLOOD COUNT 3.92 x10^6/uL (4.30-5.70); RED CELL DISTRIBUTION WIDTH 12.7 % (11.5-14.5); WHITE BLOOD COUNT 7.9 x10^3/uL (4.0-11.0)
[2020-10-28 07:27] LABS: CALCIUM 8.8 mg/dL (8.5-10.1); CREATININE 0.8 mg/dL (0.7-1.3); GFR 98.3; POTASSIUM 3.8 mmol/L (3.5-5.1)
--- NOTE | 2020-10-28 08:16 | PDOC ---
[facility] PROGRESS NOTE Date of Service DOS: DATE: 10/28/20 TIME: 08:16 Chief Complaint Chief Complaint A/P: Left sided weakness - hemorrhagic CVA of right thalamus Hypertensive emergency - with acute CVA, hemorrhagic. Nicardipine gtt Hypokalemia - replaced Macrocytosis - check B12 Keep systolic blood pressure 140 to 160. Check lipid profile, started on statin. Check 2-D echo PT OT speech evaluation Patient had repeat CT scan done brain showing stable right basal ganglia hematoma History of Present Illness History of Present Illness Mr Boyce is a 59 year old male with past medical history of HTN who presented with left-sided weakness. Symptoms started 8:19 PM on 10/25/2020. Witnessed by his . Started with facial droop and progressed rapidly to the left-sided weakness. He slumped in his chair. called EMS. On arrival the left-sided paralysis was evident to EMS. In route he began to have slurred speech. He is not on any blood thinning medications. No aspirin or Plavix. Only takes medications for hypertension. No history of previous stroke. CT head revealed 2 x 1.6 cm hemorrhage in right basal ganglia and no aneursyms on CTA. Admitted to ICU for care 10/26: Repeat CT unchanged, transferred out of ICU 10/27: Afebrile. No hypoxia. Unable to move his left hand or left leg. Is awaiting discussion for rehab. Afebrile. Having some back pain. Blood pressure well controlled. Thinks he is able to wiggle his fingers with them dangling. Has some IV site pain on the right. Vitals/I&O Vitals/I&O: Vital Signs Date Time Temp Pulse Resp B/P (MAP) Pulse Ox O2 Delivery O2 Flow Rate FiO2 10/28/20 02:53 97.8 60 16 135/79 (97) 91 Room Air 97.8 10/27/20 19:40 2.0 I & O 10/27/20 10/27/20 10/28/20 15:00 23:00 07:00 Intake Total 200 ml 220 ml 0 ml Output Total 250 ml 820 ml 300 ml Balance -50 ml -600 ml -300 ml Physical Exam General: Alert, Oriented X3, Cooperative Labs Labs: Laboratory Tests Test 10/27/20 08:40 10/28/20 06:30 White Blood Count 6.6 x10^3/uL (4.0-11.0) 7.9 x10^3/uL (4.0-11.0) Red Blood Count 3.86 x10^6/uL (4.30-5.70) 3.92 x10^6/uL (4.30-5.70) Hemoglobin 13.7 g/dL (13.0-17.5) 13.9 g/dL (13.0-17.5) Hematocrit 39.3 % (39.0-53.0) 40.3 % (39.0-53.0) Mean Corpuscular Volume 102 fL (79-100) 103 fL (79-100) Mean Corpuscular Hemoglobin 36 pg (25-35) 35 pg (25-35) Mean Corpuscular Hemoglobin Concent 35 g/dL (31-37) 34 g/dL (31-37) Red Cell Distribution Width 13.1 % (11.5-14.5) 12.7 % (11.5-14.5) Platelet Count 139 x10^3/uL (140-400) 140 x10^3/uL (140-400) Neutrophils (%) (Auto) 64 % (31-73) 65 % (31-73) Lymphocytes (%) (Auto) 25 % (24-48) 24 % (24-48) Monocytes (%) (Auto) 9 % (0-9) 8 % (0-9) Eosinophils (%) (Auto) 2 % (0-3) 3 % (0-3) Basophils (%) (Auto) 1 % (0-3) 1 % (0-3) Neutrophils # (Auto) 4.2 x10^3/uL (1.8-7.7) 5.2 x10^3/uL (1.8-7.7) Lymphocytes # (Auto) 1.7 x10^3/uL (1.0-4.8) 1.9 x10^3/uL (1.0-4.8) Monocytes # (Auto) 0.6 x10^3/uL (0.0-1.1) 0.6 x10^3/uL (0.0-1.1) Eosinophils # (Auto) 0.1 x10^3/uL (0.0-0.7) 0.2 x10^3/uL (0.0-0.7) Basophils # (Auto) 0.0 x10^3/uL (0.0-0.2) 0.0 x10^3/uL (0.0-0.2) Sodium Level 134 mmol/L (136-145) 135 mmol/L (136-145) Potassium Level 3.8 mmol/L (3.5-5.1) 3.8 mmol/L (3.5-5.1) Chloride Level 99 mmol/L (98-107) 102 mmol/L (98-107) Carbon Dioxide Level 27 mmol/L (21-32) 26 mmol/L (21-32) Anion Gap 8 (6-14) 7 (6-14) Blood Urea Nitrogen 10 mg/dL (8-26) 10 mg/dL (8-26) Creatinine 0.8 mg/dL (0.7-1.3) 0.8 mg/dL (0.7-1.3) Estimated GFR (Cockcroft-Gault) 98.3 98.3 Glucose Level 109 mg/dL (70-99) 110 mg/dL (70-99) Calcium Level 8.7 mg/dL (8.5-10.1) 8.8 mg/dL (8.5-10.1) Triglycerides Level 197 mg/dL (0-150) Cholesterol Level 188 mg/dL (0-200) LDL Cholesterol, Calculated 88 mg/dL (0-100) VLDL Cholesterol, Calculated 39 mg/dL (0-40) Non-HDL Cholesterol Calculated 127 mg/dL (0-129) HDL Cholesterol 61 mg/dL (40-60) Cholesterol/HDL Ratio 3.1 Vitamin B12 Level 235 pg/mL (247-911) Assessment and Plan Assessmemt and Plan Problems Medical Problems: (1) Basal ganglia hemorrhage Status: Acute (2) Hemorrhagic stroke Status: Acute (3) Left hemiplegia Status: Acute Comment Review of Relevant I have reviewed the following items july (where applicable) has been applied. Medications: Current Medications Medications (Trade) Dose Ordered Sig/Karen Route PRN Reason Start Time Stop Time Status Last Admin Dose Admin Psyllium Hydrophilic Mucilloid (Metamucil Fiber Packet) 1 pkt QHS PO 10/27/20 21:00 10/27/20 21:31 Cyanocobalamin (Vitamin B-12 Inj) 1,000 mcg 1X ONCE IM 10/27/20 17:00 10/27/20 17:01 DC 10/27/20 21:31 Glycerin/ Hypromellose/ Polyethylene (Artificial Tears) 1 drop PRN Q15MIN PRN OU DRY EYE 10/27/20 17:00 10/27/20 17:45 Justifications for Admission Other Justification BAL MAZA MD Oct 28, 2020 08:16
[2020-10-28] MEDS: LISINOPRIL 20 MG TABLET PO SCH (08:25)
[2020-10-28] MEDS: ALLOPURINOL 300 MG TABLET. PO SCH (09:38)
[2020-10-28 10:54] VITALS: BP 129/78
--- NOTE | 2020-10-28 11:27 | CARD ---
MR#: [id number] Date of Study: 10/28/2020 Ordering Physician: KEO CAT, Referring Physician: KEO CAT Tech: Elva Trotter [facility] APPROVED REPORT EXAM: Two-dimensional and M-mode echocardiogram with Doppler and color Doppler. Other Information Quality : Technically LimitedHR: 57bpm Rhythm : NSRTechnically limited study due to body habitus. INDICATION CVA/TIA Echo Enhancing Agent Indication: Rule Out Septal Defect Agent/Amount Used: Agitated Saline 7mL RISK FACTORS Hypertension Obesity 2D DIMENSIONS Left Atrium(2D)3.3 (1.6-4.0cm)IVSd1.6 (0.7-1.1cm) Aortic Root(2D)3.3 (2.0-3.7cm)LVDd4.5 (3.9-5.9cm) LVOT Diameter2.1 (1.8-2.4cm)PWd1.3 (0.7-1.1cm) LVDs2.5 (2.5-4.0cm)FS (%) 44.0 % SV70.1 mlLVEF(%)75.4 (>50%) Aortic Valve AoV Peak Leroy.159.9cm/sAoV VTI33.0cm AO Peak GR.10.2mmHgAO Mean GR.4mmHg Mitral Valve MV E Igtditez778.4cm/sMV DECEL [id number] MV A Tzgnfonp013.4cm/sE/A Ratio0.9 Pulmonary Valve PV Peak Ypkbptvt622.1cm/s Tricuspid Valve TR P. [id number]/sTR Peak Gr.16mmHg LEFT VENTRICLE The left ventricle is normal size. There is mild concentric left ventricular hypertrophy. The left ve ntricular systolic function is normal and the ejection fraction is within normal range. Estimated eje ction fraction 60%. There is normal LV segmental wall motion. Transmitral Doppler flow pattern is Gra de I-abnormal relaxation pattern. RIGHT VENTRICLE The right ventricle is normal size. There is normal right ventricular wall thickness. The right ventr icular systolic function is normal. ATRIA The left atrium size is normal. The right atrium size is normal. The interatrial septum is intact wit h no evidence for an atrial septal defect or patent foramen ovale as noted on 2-D or Doppler imaging. AORTIC VALVE The aortic valve is normal in structure and function. Doppler and Color Flow revealed no significant aortic regurgitation. There is no significant aortic valvular stenosis. MITRAL VALVE The mitral valve is normal in structure and function. There is no evidence of mitral valve prolapse. There is no mitral valve stenosis. TRICUSPID VALVE The tricuspid valve is normal in structure and function. Doppler and Color Flow revealed trace tricus pid regurgitation. Estimaed PAP 20 mmHg. There is no tricuspid valve stenosis. PULMONIC VALVE Doppler and Color Flow revealed no pulmonic valvular regurgitation. There is no pulmonic valvular nisa nosis. GREAT VESSELS The aortic root is normal in size. The ascending aorta is normal in size. The IVC is normal in size a nd collapses >50% with inspiration. PERICARDIAL EFFUSION There is no evidence of significant pericardial effusion. Critical Notification Critical Value: No <Conclusion> The left ventricular systolic function is normal and the ejection fraction is within normal range. E stimated ejection fraction 60%. There is normal LV segmental wall motion. Grossly no evidence of right to left shunting on agitated saline contrast study but the images are te chnically limited due to body habitus. If there is a high concern from cryptogenic stroke, consider C[facility]. Signed by : Roland Chawla, Electronically Approved : 10/28/2020 11:26:44
--- NOTE | 2020-10-28 11:55 | NUR ---
SS following up with discharge planning. SS reviewed pt chart and discussed with pt RN. Pt is currently on room air. COVID19 negative. PT/OT recommended acute rehabilitation. SS met with pt to discuss discharge planning and acute rehabilitation. Pt requesting to go to [facility], ; fax [phone]. SS phoned and faxed referral as requested. SS will continue to follow for discharge planning. Addendum: 10/28/20 at 1347 by CHARBEL CAMPUZANO SS Pt accepted at [facility] pending insurance authorization. SS discussed with pt's spouse and pt's spouse agreeable as well.
--- NOTE | 2020-10-28 12:16 | PDOC ---
PROGRESS NOTES Date of Service DATE: 10/28/20 TIME: 12:13 Assessment Problems Medical Problems: (1) Basal ganglia hemorrhage Status: Acute (2) Hemorrhagic stroke Status: Acute (3) Left hemiplegia Status: Acute Right basal ganglia intraparenchymal hematoma, negative CT angiogram Hyperlipidemia, statin started, consider high-dose statin therapy, he can discuss with his primary physician Plan Rehabilitation modalities He will need inpatient rehab Subjective No headache Objective Vital Signs Date Time Temp Pulse Resp B/P (MAP) Pulse Ox O2 Delivery O2 Flow Rate FiO2 10/28/20 10:54 98.0 55 16 129/78 (95) 96 Room Air 98.0 10/27/20 19:40 2.0 Intake and Output 10/28/20 07:00 Intake Total 420 ml Output Total 1370 ml Balance -950 ml Intake Oral 420 ml Output Urine Total 1370 ml PHYSICAL EXAM Alert. Oriented to time, place and person. PERRL. EOMI. CN: Mild left central facial weakness Muscle tone: normal. Muscle strength: 2/5 left arm, 3/5 left leg, 5/5 right-sided extremities DTR: 2+ Plantar reflex: Flexor Gait: not examined in bed. Sensory exam: no abnormal findings. No cerebellar signs out of proportion to the hemiparesis. Review of Relevant I have reviewed the following items july (where applicable) has been applied. Labs Laboratory Tests Test 10/27/20 05:05 10/27/20 08:40 10/28/20 06:30 SARS-CoV-2 RNA (RADHA) Negative (Negative) White Blood Count 6.6 x10^3/uL (4.0-11.0) 7.9 x10^3/uL (4.0-11.0) Red Blood Count 3.86 x10^6/uL (4.30-5.70) 3.92 x10^6/uL (4.30-5.70) Hemoglobin 13.7 g/dL (13.0-17.5) 13.9 g/dL (13.0-17.5) Hematocrit 39.3 % (39.0-53.0) 40.3 % (39.0-53.0) Mean Corpuscular Volume 102 fL (79-100) 103 fL (79-100) Mean Corpuscular Hemoglobin 36 pg (25-35) 35 pg (25-35) Mean Corpuscular Hemoglobin Concent 35 g/dL (31-37) 34 g/dL (31-37) Red Cell Distribution Width 13.1 % (11.5-14.5) 12.7 % (11.5-14.5) Platelet Count 139 x10^3/uL (140-400) 140 x10^3/uL (140-400) Neutrophils (%) (Auto) 64 % (31-73) 65 % (31-73) Lymphocytes (%) (Auto) 25 % (24-48) 24 % (24-48) Monocytes (%) (Auto) 9 % (0-9) 8 % (0-9) Eosinophils (%) (Auto) 2 % (0-3) 3 % (0-3) Basophils (%) (Auto) 1 % (0-3) 1 % (0-3) Neutrophils # (Auto) 4.2 x10^3/uL (1.8-7.7) 5.2 x10^3/uL (1.8-7.7) Lymphocytes # (Auto) 1.7 x10^3/uL (1.0-4.8) 1.9 x10^3/uL (1.0-4.8) Monocytes # (Auto) 0.6 x10^3/uL (0.0-1.1) 0.6 x10^3/uL (0.0-1.1) Eosinophils # (Auto) 0.1 x10^3/uL (0.0-0.7) 0.2 x10^3/uL (0.0-0.7) Basophils # (Auto) 0.0 x10^3/uL (0.0-0.2) 0.0 x10^3/uL (0.0-0.2) Sodium Level 134 mmol/L (136-145) 135 mmol/L (136-145) Potassium Level 3.8 mmol/L (3.5-5.1) 3.8 mmol/L (3.5-5.1) Chloride Level 99 mmol/L (98-107) 102 mmol/L (98-107) Carbon Dioxide Level 27 mmol/L (21-32) 26 mmol/L (21-32) Anion Gap 8 (6-14) 7 (6-14) Blood Urea Nitrogen 10 mg/dL (8-26) 10 mg/dL (8-26) Creatinine 0.8 mg/dL (0.7-1.3) 0.8 mg/dL (0.7-1.3) Estimated GFR (Cockcroft-Gault) 98.3 98.3 Glucose Level 109 mg/dL (70-99) 110 mg/dL (70-99) Calcium Level 8.7 mg/dL (8.5-10.1) 8.8 mg/dL (8.5-10.1) Triglycerides Level 197 mg/dL (0-150) Cholesterol Level 188 mg/dL (0-200) LDL Cholesterol, Calculated 88 mg/dL (0-100) VLDL Cholesterol, Calculated 39 mg/dL (0-40) Non-HDL Cholesterol Calculated 127 mg/dL (0-129) HDL Cholesterol 61 mg/dL (40-60) Cholesterol/HDL Ratio 3.1 Vitamin B12 Level 235 pg/mL (247-911) Laboratory Tests Test 10/28/20 06:30 White Blood Count 7.9 x10^3/uL (4.0-11.0) Red Blood Count 3.92 x10^6/uL (4.30-5.70) Hemoglobin 13.9 g/dL (13.0-17.5) Hematocrit 40.3 % (39.0-53.0) Mean Corpuscular Volume 103 fL (79-100) Mean Corpuscular Hemoglobin 35 pg (25-35) Mean Corpuscular Hemoglobin Concent 34 g/dL (31-37) Red Cell Distribution Width 12.7 % (11.5-14.5) Platelet Count 140 x10^3/uL (140-400) Neutrophils (%) (Auto) 65 % (31-73) Lymphocytes (%) (Auto) 24 % (24-48) Monocytes (%) (Auto) 8 % (0-9) Eosinophils (%) (Auto) 3 % (0-3) Basophils (%) (Auto) 1 % (0-3) Neutrophils # (Auto) 5.2 x10^3/uL (1.8-7.7) Lymphocytes # (Auto) 1.9 x10^3/uL (1.0-4.8) Monocytes # (Auto) 0.6 x10^3/uL (0.0-1.1) Eosinophils # (Auto) 0.2 x10^3/uL (0.0-0.7) Basophils # (Auto) 0.0 x10^3/uL (0.0-0.2) Sodium Level 135 mmol/L (136-145) Potassium Level 3.8 mmol/L (3.5-5.1) Chloride Level 102 mmol/L (98-107) Carbon Dioxide Level 26 mmol/L (21-32) Anion Gap 7 (6-14) Blood Urea Nitrogen 10 mg/dL (8-26) Creatinine 0.8 mg/dL (0.7-1.3) Estimated GFR (Cockcroft-Gault) 98.3 Glucose Level 110 mg/dL (70-99) Calcium Level 8.8 mg/dL (8.5-10.1) Medications Current Medications Nicardipine HCl 50 mg/Sodium Chloride 250 ml @ 25 mls/hr CONT PRN IV SEE I/O RECORD Last administered on 10/25/20at 22:59; Start 10/25/20 at 22:00; Stop 10/27/20 at 16:52; Status DC Iohexol (Omnipaque 300 Mg/ml) 75 ml 1X ONCE IV Last administered on 10/25/20at 22:39; Start 10/25/20 at 22:30; Stop 10/25/20 at 22:31; Status DC Info (CONTRAST GIVEN -- Rx MONITORING) 1 each PRN DAILY PRN MC SEE COMMENTS; Start 10/25/20 at 22:15; Stop 10/27/20 at 22:14; Status DC Allopurinol (Zyloprim) 300 mg DAILY PO Last administered on 10/28/20at 09:38; Start 10/26/20 at 11:00 Lisinopril (Prinivil) 40 mg DAILY PO Last administered on 10/26/20at 14:05; Start 10/26/20 at 11:00 Pantoprazole Sodium (Protonix) 40 mg DAILYAC PO Last administered on 10/28/20at 05:50; Start 10/26/20 at 11:30 Nicotine (Nicoderm Cq 14mg) 1 patch PRN DAILY PRN TD SMOKING CESSATION Last administered on 10/26/20at 15:56; Start 10/26/20 at 15:30 Atorvastatin Calcium (Lipitor) 20 mg QHS PO Last administered on 10/27/20at 21 :31; Start 10/26/20 at 21:00 Acetaminophen (Tylenol) 650 mg PRN Q8HRS PRN PO MILD PAIN / TEMP > 100.3'F; Start 10/26/20 at 19:15 Ondansetron HCl (Zofran) 4 mg PRN Q4HRS PRN IVP NAUSEA/VOMITING; Start 10/27/20 at 09:00 Psyllium Hydrophilic Mucilloid (Metamucil Fiber Packet) 1 pkt QHS PO Last administered on 10/27/20at 21:31; Start 10/27/20 at 21:00 Cyanocobalamin (Vitamin B-12 Inj) 1,000 mcg 1X ONCE IM Last administered on 10/27/20at 21:31; Start 10/27/20 at 17:00; Stop 10/27/20 at 17:01; Status DC Glycerin/ Hypromellose/ Polyethylene (Artificial Tears) 1 drop PRN Q15MIN PRN OU DRY EYE Last administered on 10/27/20at 17:45; Start 10/27/20 at 17:00 Labetalol HCl (Normodyne Iv Push) 10 mg PRN Q2HR PRN IVP HYPERTENSION; Start 10/27/20 at 17:00 Active Scripts Active Reported Allopurinol 300 Mg Tablet 1 Tab PO DAILY Lisinopril 40 Mg Tablet 1 Tab PO DAILY Prilosec Otc (Omeprazole Magnesium) 20 Mg Tablet.dr 20 Mg PO DAILY Vitals/I & O Vital Sign - Last 24 Hours 10/27/20 10/27/20 10/27/20 10/28/20 19:00 19:40 23:00 02:53 Temp 97.8 97.9 97.8 97.8 97.9 97.8 Pulse 65 67 60 Resp 18 18 16 B/P (MAP) 127/71 (89) 132/79 (96) 135/79 (97) Pulse Ox 98 97 91 O2 Delivery Room Air Nasal Cannula Room Air Room Air O2 Flow Rate 2.0 10/28/20 10/28/20 10/28/20 10/28/20 07:00 08:00 08:25 10:54 Temp 97.6 98.0 97.6 98.0 Pulse 64 73 55 Resp 18 16 B/P (MAP) 139/80 (99) 139/80 129/78 (95) Pulse Ox 94 96 O2 Delivery Room Air Room Air Room Air Intake and Output 10/27/20 10/27/20 10/28/20 15:00 23:00 07:00 Intake Total 200 ml 220 ml 0 ml Output Total 250 ml 820 ml 300 ml Balance -50 ml -600 ml -300 ml Images Echocardiogram LEFT VENTRICLE The left ventricle is normal size. There is mild concentric left ventricular hypertrophy. The left ventricular systolic function is normal and the ejection fraction is within normal range. Estimated ejection fraction 60%. There is normal LV segmental wall motion. Transmitral Doppler flow pattern is Grade I- abnormal relaxation pattern. RIGHT VENTRICLE The right ventricle is normal size. There is normal right ventricular wall thickness. The right ventricular systolic function is normal. ATRIA The left atrium size is normal. The right atrium size is normal. The interatrial septum is intact with no evidence for an atrial septal defect or patent foramen ovale as noted on 2-D or Doppler imaging. AORTIC VALVE The aortic valve is normal in structure and function. Doppler and Color Flow revealed no significant aortic regurgitation. There is no significant aortic valvular stenosis. MITRAL VALVE The mitral valve is normal in structure and function. There is no evidence of mitral valve prolapse. There is no mitral valve stenosis. TRICUSPID VALVE The tricuspid valve is normal in structure and function. Doppler and Color Flow revealed trace tricuspid regurgitation. Estimaed PAP 20 mmHg. There is no tricuspid valve stenosis. PULMONIC VALVE Doppler and Color Flow revealed no pulmonic valvular regurgitation. There is no pulmonic valvular stenosis. GREAT VESSELS The aortic root is normal in size. The ascending aorta is normal in size. The IVC is normal in size and collapses >50% with inspiration. PERICARDIAL EFFUSION There is no evidence of significant pericardial effusion. Critical Notification Critical Value: No <Conclusion> The left ventricular systolic function is normal and the ejection fraction is within normal range. Estimated ejection fraction 60%. There is normal LV segmental wall motion. Grossly no evidence of right to left shunting on agitated saline contrast study but the images are technically limited due to body habitus. If there is a high concern from cryptogenic stroke, consider CECY. Justicifation of Admission Dx: Justifications for Admission: Justification of Admission Dx: Yes JEANNA GONZALEZ MD Oct 28, 2020 12:16
[2020-10-28 15:00] VITALS: BP 133/88
[2020-10-28] MEDS: NICOTINE 14MG PATCH. TD PRN (17:00)
[2020-10-28 19:00] VITALS: BP 171/78
--- NOTE | 2020-10-28 19:35 | NUR ---
pt sitting up in chair assessment completed vss poc explained pt denied pain call light in reach will resume care and continue to monitor pt.
[2020-10-28] MEDS: ATORVASTATIN CALCIUM 20 MG TABLET PO SCH (21:05)
[2020-10-28] MEDS: PSYLLIUM HUSK (SUGAR FREE) 1 PKT PACKET PO SCH (21:05)
[2020-10-28 22:56] VITALS: BP 167/98
[2020-10-29 03:00] VITALS: BP 141/80
[2020-10-29] MEDS: PANTOPRAZOLE 40 MG TABLET.DR. PO SCH (05:39)
[2020-10-29 07:00] VITALS: BP 134/81
[2020-10-29 07:24] LABS: BASO % 1 % (0-3); EOS # 0.3 x10^3/uL (0.0-0.7); EOS % 3 % (0-3); HEMATOCRIT 40.9 % (39.0-53.0); HEMOGLOBIN 14.2 g/dL (13.0-17.5); LYMPH # 1.8 x10^3/uL (1.0-4.8); LYMPH % 24 % (24-48); MEAN CORPUSCULAR HEMOGLOBIN 35 pg (25-35); MEAN CORPUSCULAR HGB CONC 35 g/dL (31-37); MEAN CORPUSCULAR VOLUME 102 fL (79-100); MONO # 0.6 x10^3/uL (0.0-1.1); MONO % 8 % (0-9); NEUT # 4.8 x10^3/uL (1.8-7.7); NEUT % 64 % (31-73); PLATELET COUNT 134 x10^3/uL (140-400); RED CELL DISTRIBUTION WIDTH 12.9 % (11.5-14.5); WHITE BLOOD COUNT 7.5 x10^3/uL (4.0-11.0)
[2020-10-29 07:46] LABS: CALCIUM 8.9 mg/dL (8.5-10.1); CREATININE 0.8 mg/dL (0.7-1.3); GFR 98.3; POTASSIUM 3.8 mmol/L (3.5-5.1)
--- NOTE | 2020-10-29 08:08 | PDOC ---
[facility] [facility] PROGRESS NOTE Date of Service DOS: DATE: 10/29/20 TIME: 08:08 Chief Complaint Chief Complaint A/P: Left sided weakness - hemorrhagic CVA of right thalamus Hypertensive emergency - with acute CVA, hemorrhagic. Nicardipine gtt Hypokalemia - replaced Macrocytosis - check B12 Keep systolic blood pressure 140 to 160. Check lipid profile, started on statin. Check 2-D echo PT OT speech evaluation Patient had repeat CT scan done brain showing stable right basal ganglia hematoma History of Present Illness History of Present Illness Mr Boyce is a 59 year old male with past medical history of HTN who presented with left-sided weakness. Symptoms started 8:19 PM on 10/25/2020. Witnessed by his . Started with facial droop and progressed rapidly to the left-sided weakness. He slumped in his chair. called EMS. On arrival the left-sided paralysis was evident to EMS. In route he began to have slurred speech. He is not on any blood thinning medications. No aspirin or Plavix. Only takes medications for hypertension. No history of previous stroke. CT head revealed 2 x 1.6 cm hemorrhage in right basal ganglia and no aneursyms on CTA. Admitted to ICU for care 10/26: Repeat CT unchanged, transferred out of ICU 10/27: Afebrile. No hypoxia. Unable to move his left hand or left leg. Is awaiting discussion for rehab. Replaced B12 IM. 10/28: Afebrile. Having some back pain. Blood pressure well controlled. Thinks he is able to wiggle his fingers with them dangling. Has some IV site pain on the right. Afebrile. Frustrated with his left-sided weakness. Plan is to go to acute rehab. Consults: Neurology, Neurosurgery Vitals/I&O Vitals/I&O: Vital Signs Date Time Temp Pulse Resp B/P (MAP) Pulse Ox O2 Delivery O2 Flow Rate FiO2 10/29/20 03:00 98.1 60 18 141/80 (100) 93 Room Air 98.1 I & O 10/28/20 10/28/20 10/29/20 15:00 23:00 07:00 Intake Total 580 ml 840 ml 210 ml Output Total 700 ml 950 ml 400 ml Balance -120 ml -110 ml -190 ml Physical Exam General: Alert, Oriented X3, Cooperative Labs Labs: Laboratory Tests Test 10/29/20 06:30 White Blood Count 7.5 x10^3/uL (4.0-11.0) Red Blood Count 4.00 x10^6/uL (4.30-5.70) Hemoglobin 14.2 g/dL (13.0-17.5) Hematocrit 40.9 % (39.0-53.0) Mean Corpuscular Volume 102 fL (79-100) Mean Corpuscular Hemoglobin 35 pg (25-35) Mean Corpuscular Hemoglobin Concent 35 g/dL (31-37) Red Cell Distribution Width 12.9 % (11.5-14.5) Platelet Count 134 x10^3/uL (140-400) Neutrophils (%) (Auto) 64 % (31-73) Lymphocytes (%) (Auto) 24 % (24-48) Monocytes (%) (Auto) 8 % (0-9) Eosinophils (%) (Auto) 3 % (0-3) Basophils (%) (Auto) 1 % (0-3) Neutrophils # (Auto) 4.8 x10^3/uL (1.8-7.7) Lymphocytes # (Auto) 1.8 x10^3/uL (1.0-4.8) Monocytes # (Auto) 0.6 x10^3/uL (0.0-1.1) Eosinophils # (Auto) 0.3 x10^3/uL (0.0-0.7) Basophils # (Auto) 0.0 x10^3/uL (0.0-0.2) Sodium Level 135 mmol/L (136-145) Potassium Level 3.8 mmol/L (3.5-5.1) Chloride Level 102 mmol/L (98-107) Carbon Dioxide Level 27 mmol/L (21-32) Anion Gap 6 (6-14) Blood Urea Nitrogen 9 mg/dL (8-26) Creatinine 0.8 mg/dL (0.7-1.3) Estimated GFR (Cockcroft-Gault) 98.3 Glucose Level 100 mg/dL (70-99) Calcium Level 8.9 mg/dL (8.5-10.1) Assessment and Plan Assessmemt and Plan Problems Medical Problems: (1) Basal ganglia hemorrhage Status: Acute (2) Hemorrhagic stroke Status: Acute (3) Left hemiplegia Status: Acute Comment Review of Relevant I have reviewed the following items july (where applicable) has been applied. Justifications for Admission Other Justification BAL MAZA MD Oct 29, 2020 08:08
[2020-10-29] MEDS: LISINOPRIL 20 MG TABLET PO SCH (09:00)
[2020-10-29] MEDS: ALLOPURINOL 300 MG TABLET. PO SCH (09:28)
--- NOTE | 2020-10-29 09:57 | PDOC ---
PROGRESS NOTES Date of Service DATE: 10/29/20 TIME: 09:55 Assessment Problems Medical Problems: (1) Basal ganglia hemorrhage Status: Acute (2) Hemorrhagic stroke Status: Acute (3) Left hemiplegia Status: Acute Right basal ganglia intraparenchymal hematoma, negative CT angiogram Hyperlipidemia, statin started, consider high-dose statin therapy, he can discuss with his primary physician Plan Rehabilitation modalities Awaiting transfer to [facility], Social work help appreciated Discussed with Subjective No complaints. Yesterday tells me she thinks he is intermittently confused, I have not witnessed any myself. I reassured her that such fluctuations are normal with this type of hemorrhagic stroke in the basal ganglia Objective Vital Signs Date Time Temp Pulse Resp B/P (MAP) Pulse Ox O2 Delivery O2 Flow Rate FiO2 10/29/20 08:00 Room Air 10/29/20 07:00 98.2 62 16 134/81 (98) 95 98.2 Intake and Output 10/29/20 07:00 Intake Total 1630 ml Output Total 2050 ml Balance -420 ml Intake Oral 1630 ml Output Urine Total 2050 ml PHYSICAL EXAM Alert. Oriented to time, place and person. PERRL. EOMI. CN: Mild left central facial weakness Muscle tone: normal. Muscle strength: 2/5 left arm, 3/5 left leg, 5/5 right-sided extremities DTR: 2+ Plantar reflex: Flexor Gait: not examined in bed. Sensory exam: no abnormal findings. No cerebellar signs out of proportion to the hemiparesis. Review of Relevant I have reviewed the following items july (where applicable) has been applied. Labs Laboratory Tests Test 10/28/20 06:30 10/29/20 06:30 White Blood Count 7.9 x10^3/uL (4.0-11.0) 7.5 x10^3/uL (4.0-11.0) Red Blood Count 3.92 x10^6/uL (4.30-5.70) 4.00 x10^6/uL (4.30-5.70) Hemoglobin 13.9 g/dL (13.0-17.5) 14.2 g/dL (13.0-17.5) Hematocrit 40.3 % (39.0-53.0) 40.9 % (39.0-53.0) Mean Corpuscular Volume 103 fL (79-100) 102 fL (79-100) Mean Corpuscular Hemoglobin 35 pg (25-35) 35 pg (25-35) Mean Corpuscular Hemoglobin Concent 34 g/dL (31-37) 35 g/dL (31-37) Red Cell Distribution Width 12.7 % (11.5-14.5) 12.9 % (11.5-14.5) Platelet Count 140 x10^3/uL (140-400) 134 x10^3/uL (140-400) Neutrophils (%) (Auto) 65 % (31-73) 64 % (31-73) Lymphocytes (%) (Auto) 24 % (24-48) 24 % (24-48) Monocytes (%) (Auto) 8 % (0-9) 8 % (0-9) Eosinophils (%) (Auto) 3 % (0-3) 3 % (0-3) Basophils (%) (Auto) 1 % (0-3) 1 % (0-3) Neutrophils # (Auto) 5.2 x10^3/uL (1.8-7.7) 4.8 x10^3/uL (1.8-7.7) Lymphocytes # (Auto) 1.9 x10^3/uL (1.0-4.8) 1.8 x10^3/uL (1.0-4.8) Monocytes # (Auto) 0.6 x10^3/uL (0.0-1.1) 0.6 x10^3/uL (0.0-1.1) Eosinophils # (Auto) 0.2 x10^3/uL (0.0-0.7) 0.3 x10^3/uL (0.0-0.7) Basophils # (Auto) 0.0 x10^3/uL (0.0-0.2) 0.0 x10^3/uL (0.0-0.2) Sodium Level 135 mmol/L (136-145) 135 mmol/L (136-145) Potassium Level 3.8 mmol/L (3.5-5.1) 3.8 mmol/L (3.5-5.1) Chloride Level 102 mmol/L (98-107) 102 mmol/L (98-107) Carbon Dioxide Level 26 mmol/L (21-32) 27 mmol/L (21-32) Anion Gap 7 (6-14) 6 (6-14) Blood Urea Nitrogen 10 mg/dL (8-26) 9 mg/dL (8-26) Creatinine 0.8 mg/dL (0.7-1.3) 0.8 mg/dL (0.7-1.3) Estimated GFR (Cockcroft-Gault) 98.3 98.3 Glucose Level 110 mg/dL (70-99) 100 mg/dL (70-99) Calcium Level 8.8 mg/dL (8.5-10.1) 8.9 mg/dL (8.5-10.1) Laboratory Tests Test 10/29/20 06:30 White Blood Count 7.5 x10^3/uL (4.0-11.0) Red Blood Count 4.00 x10^6/uL (4.30-5.70) Hemoglobin 14.2 g/dL (13.0-17.5) Hematocrit 40.9 % (39.0-53.0) Mean Corpuscular Volume 102 fL (79-100) Mean Corpuscular Hemoglobin 35 pg (25-35) Mean Corpuscular Hemoglobin Concent 35 g/dL (31-37) Red Cell Distribution Width 12.9 % (11.5-14.5) Platelet Count 134 x10^3/uL (140-400) Neutrophils (%) (Auto) 64 % (31-73) Lymphocytes (%) (Auto) 24 % (24-48) Monocytes (%) (Auto) 8 % (0-9) Eosinophils (%) (Auto) 3 % (0-3) Basophils (%) (Auto) 1 % (0-3) Neutrophils # (Auto) 4.8 x10^3/uL (1.8-7.7) Lymphocytes # (Auto) 1.8 x10^3/uL (1.0-4.8) Monocytes # (Auto) 0.6 x10^3/uL (0.0-1.1) Eosinophils # (Auto) 0.3 x10^3/uL (0.0-0.7) Basophils # (Auto) 0.0 x10^3/uL (0.0-0.2) Sodium Level 135 mmol/L (136-145) Potassium Level 3.8 mmol/L (3.5-5.1) Chloride Level 102 mmol/L (98-107) Carbon Dioxide Level 27 mmol/L (21-32) Anion Gap 6 (6-14) Blood Urea Nitrogen 9 mg/dL (8-26) Creatinine 0.8 mg/dL (0.7-1.3) Estimated GFR (Cockcroft-Gault) 98.3 Glucose Level 100 mg/dL (70-99) Calcium Level 8.9 mg/dL (8.5-10.1) Medications Current Medications Nicardipine HCl 50 mg/Sodium Chloride 250 ml @ 25 mls/hr CONT PRN IV SEE I/O RECORD Last administered on 10/25/20at 22:59; Start 10/25/20 at 22:00; Stop 10/27/20 at 16:52; Status DC Iohexol (Omnipaque 300 Mg/ml) 75 ml 1X ONCE IV Last administered on 10/25/20at 22:39; Start 10/25/20 at 22:30; Stop 10/25/20 at 22:31; Status DC Info (CONTRAST GIVEN -- Rx MONITORING) 1 each PRN DAILY PRN MC SEE COMMENTS; Start 10/25/20 at 22:15; Stop 10/27/20 at 22:14; Status DC Allopurinol (Zyloprim) 300 mg DAILY PO Last administered on 10/29/20at 09:28; Start 10/26/20 at 11:00 Lisinopril (Prinivil) 40 mg DAILY PO Last administered on 10/26/20at 14:05; Start 10/26/20 at 11:00 Pantoprazole Sodium (Protonix) 40 mg DAILYAC PO Last administered on 10/29/20at 05:39; Start 10/26/20 at 11:30 Nicotine (Nicoderm Cq 14mg) 1 patch PRN DAILY PRN TD SMOKING CESSATION Last administered on 10/28/20at 17:00; Start 10/26/20 at 15:30 Atorvastatin Calcium (Lipitor) 20 mg QHS PO Last administered on 10/28/20at 21:05; Start 10/26/20 at 21:00 Acetaminophen (Tylenol) 650 mg PRN Q8HRS PRN PO MILD PAIN / TEMP > 100.3'F; Start 10/26/20 at 19:15 Ondansetron HCl (Zofran) 4 mg PRN Q4HRS PRN IVP NAUSEA/VOMITING; Start 10/27/20 at 09:00 Psyllium Hydrophilic Mucilloid (Metamucil Fiber Packet) 1 pkt QHS PO Last administered on 10/28/20at 21:05; Start 10/27/20 at 21:00 Cyanocobalamin (Vitamin B-12 Inj) 1,000 mcg 1X ONCE IM Last administered on 10/27/20at 21:31; Start 10/27/20 at 17:00; Stop 10/27/20 at 17:01; Status DC Glycerin/ Hypromellose/ Polyethylene (Artificial Tears) 1 drop PRN Q15MIN PRN OU DRY EYE Last administered on 10/27/20at 17:45; Start 10/27/20 at 17:00 Labetalol HCl (Normodyne Iv Push) 10 mg PRN Q2HR PRN IVP HYPERTENSION; Start at 17:00 Active Scripts Active Reported Allopurinol 300 Mg Tablet 1 Tab PO DAILY Lisinopril 40 Mg Tablet 1 Tab PO DAILY Prilosec Otc (Omeprazole Magnesium) 20 Mg Tablet.dr 20 Mg PO DAILY Vitals/I & O Vital Sign - Last 24 Hours 10/28/20 10/28/20 10/28/20 10/28/20 10:54 15:00 19:00 19:35 Temp 98.0 97.8 98.0 98.0 97.8 98.0 Pulse 55 66 101 Resp 16 18 20 B/P (MAP) 129/78 (95) 133/88 (103) 171/78 (109) Pulse Ox 96 94 94 O2 Delivery Room Air Room Air Room Air Room Air 10/28/20 10/29/20 10/29/20 10/29/20 22:56 03:00 07:00 08:00 Temp 97.7 98.1 98.2 97.7 98.1 98.2 Pulse 60 60 62 Resp 20 18 16 B/P (MAP) 167/98 (121) 141/80 (100) 134/81 (98) Pulse Ox 97 93 95 O2 Delivery Room Air Room Air Room Air Room Air Intake and Output 10/28/20 10/28/20 10/29/20 15:00 23:00 07:00 Intake Total 580 ml 840 ml 210 ml Output Total 700 ml 950 ml 400 ml Balance -120 ml -110 ml -190 ml Justicifation of Admission Dx: Justifications for Admission: Justification of Admission Dx: Yes JEANNA GONZALEZ MD Oct 29, 2020 09:57
[2020-10-29] MEDS ORDERED: ATOR20TA58 PO (10:15)
[2020-10-29] MEDS ORDERED: PSYL3.4P PO (10:15)
[2020-10-29] MEDS ORDERED: DEXT15DR17 OU (10:15)
[2020-10-29] MEDS ORDERED: ACET325T21 PO (10:15)
[2020-10-29] MEDS ORDERED: Nicotine 14MG TD (10:15)
--- NOTE | 2020-10-29 10:16 | SNU/HH DC ---
DISCHARGE ORDERS DISCHARGE INFORMATION: DISCHARGE DATE: Oct 29, 2020 FINAL DIAGNOSIS Problems Medical Problems: (1) Basal ganglia hemorrhage Status: Acute (2) Hemorrhagic stroke Status: Acute (3) Left hemiplegia Status: Acute CONDITION ON DISCHARGE: Stable CODE STATUS: Code Status: Full [facility]: SNF STAY <30 DAYS: Yes POST DISCHARGE ORDERS: ACTIVITY ORDERS: Activity as tolerated, Other, see below WEIGHT BEARING STATUS: As tolerated DIET AFTER DISCHARGE: Regular WOUND/INCISION CARE: Ice to area for comfort, Change dressing CHECKS AFTER DISCHARGE: CHECKS AFTER DISCHARGE: Check blood press - daily, Check your Temp as needed TREATMENT/EQUIPMENT ORDERS: Physical Therapy For: Evalulation/Treatment Occupational Therapy For: Evaluation/Treatment DISCHARGE MEDICATIONS: Home Meds Active Scripts Cyanocobalamin (Vitamin B-12) (B-12) 500 Mcg Tab.rapdis, 500 MCG SL DAILY for B12 deficiency for 30 Days, #30 TAB 11 Refills Prov:BAL MAZA MD 10/29/20 Acetaminophen (ACETAMINOPHEN) 325 Mg Tablet, 650 MG PO PRN Q8HRS PRN for MILD PAIN / TEMP > 100.3'F for 30 Days, #120 TAB Prov:BAL MAZA MD 10/29/20 Atorvastatin Calcium (ATORVASTATIN CALCIUM) 20 Mg Tablet, 20 MG PO QHS for HLD for 30 Days, #30 TAB 11 Refills Prov:BAL MAZA MD 10/29/20 Dextran/Hypromellose/Glycerin (Genteal Tears 0.1%-0.2%-0.3%) 15 Ml Drops, 1 DROP OU PRN Q15MIN PRN for DRY EYE for 30 Days, #120 DROP Prov:BAL MAZA MD 10/29/20 Psyllium Husk/Aspartame (METAMUCIL FIBER SINGLES PACKET) 3.4 Gm Powd.pack, 1 PKT PO QHS for Constipation for 30 Days, #30 PKT Prov:BAL MAZA MD 10/29/20 [Nicotine 14MG] 1 PATCH PATCH No Conflict Check, 1 PATCH TD PRN DAILY PRN for SMOKING CESSATION for 30 Days, #30 PATCH 0 Refills Prov:BAL MAZA MD 10/29/20 Reported Medications Allopurinol (ALLOPURINOL) 300 Mg Tablet, 1 TAB PO DAILY for gout, #30 TAB 5 Refills 8/1/21 Lisinopril (LISINOPRIL) 40 Mg Tablet, 1 TAB PO DAILY for blood pressure, #30 TAB 5 Refills 10/26/20 Omeprazole Magnesium (PRILOSEC OTC) 20 Mg Tablet.dr, 20 MG PO DAILY, TAB 11/17/17 BAL MAZA MD Oct 29, 2020 10:16
[2020-10-29] MEDS ORDERED: CYAN500L4 SL (10:22)
--- NOTE | 2020-10-29 10:24 | PDOC3 ---
Discharge Summary Visit Information Date of Admission: Oct 25, 2020 Date of Discharge: Oct 29, 2020 Admitting Diagnosis: Left hemiparesis Final Diagnosis Problems Medical Problems: (1) Basal ganglia hemorrhage Status: Acute (2) Hemorrhagic stroke Status: Acute (3) Left hemiplegia Status: Acute Brief Hospital Course Allergies Allergies Coded Allergies Type Severity Reaction Last Updated Verified valsartan Allergy Intermediate MYALGIAS 11/18/17 Yes Vital Signs Vital Signs Date Time Temp Pulse Resp B/P (MAP) Pulse Ox O2 Delivery O2 Flow Rate FiO2 10/29/20 08:00 Room Air 10/29/20 07:00 98.2 62 16 134/81 (98) 95 98.2 Lab Results Laboratory Tests Test 10/28/20 06:30 10/29/20 06:30 White Blood Count 7.9 x10^3/uL (4.0-11.0) 7.5 x10^3/uL (4.0-11.0) Red Blood Count 3.92 x10^6/uL (4.30-5.70) 4.00 x10^6/uL (4.30-5.70) Hemoglobin 13.9 g/dL (13.0-17.5) 14.2 g/dL (13.0-17.5) Hematocrit 40.3 % (39.0-53.0) 40.9 % (39.0-53.0) Mean Corpuscular Volume 103 fL (79-100) 102 fL (79-100) Mean Corpuscular Hemoglobin 35 pg (25-35) 35 pg (25-35) Mean Corpuscular Hemoglobin Concent 34 g/dL (31-37) 35 g/dL (31-37) Red Cell Distribution Width 12.7 % (11.5-14.5) 12.9 % (11.5-14.5) Platelet Count 140 x10^3/uL (140-400) 134 x10^3/uL (140-400) Neutrophils (%) (Auto) 65 % (31-73) 64 % (31-73) Lymphocytes (%) (Auto) 24 % (24-48) 24 % (24-48) Monocytes (%) (Auto) 8 % (0-9) 8 % (0-9) Eosinophils (%) (Auto) 3 % (0-3) 3 % (0-3) Basophils (%) (Auto) 1 % (0-3) 1 % (0-3) Neutrophils # (Auto) 5.2 x10^3/uL (1.8-7.7) 4.8 x10^3/uL (1.8-7.7) Lymphocytes # (Auto) 1.9 x10^3/uL (1.0-4.8) 1.8 x10^3/uL (1.0-4.8) Monocytes # (Auto) 0.6 x10^3/uL (0.0-1.1) 0.6 x10^3/uL (0.0-1.1) Eosinophils # (Auto) 0.2 x10^3/uL (0.0-0.7) 0.3 x10^3/uL (0.0-0.7) Basophils # (Auto) 0.0 x10^3/uL (0.0-0.2) 0.0 x10^3/uL (0.0-0.2) Sodium Level 135 mmol/L (136-145) 135 mmol/L (136-145) Potassium Level 3.8 mmol/L (3.5-5.1) 3.8 mmol/L (3.5-5.1) Chloride Level 102 mmol/L (98-107) 102 mmol/L (98-107) Carbon Dioxide Level 26 mmol/L (21-32) 27 mmol/L (21-32) Anion Gap 7 (6-14) 6 (6-14) Blood Urea Nitrogen 10 mg/dL (8-26) 9 mg/dL (8-26) Creatinine 0.8 mg/dL (0.7-1.3) 0.8 mg/dL (0.7-1.3) Estimated GFR (Cockcroft-Gault) 98.3 98.3 Glucose Level 110 mg/dL (70-99) 100 mg/dL (70-99) Calcium Level 8.8 mg/dL (8.5-10.1) 8.9 mg/dL (8.5-10.1) Laboratory Tests Test 10/29/20 06:30 White Blood Count 7.5 x10^3/uL (4.0-11.0) Red Blood Count 4.00 x10^6/uL (4.30-5.70) Hemoglobin 14.2 g/dL (13.0-17.5) Hematocrit 40.9 % (39.0-53.0) Mean Corpuscular Volume 102 fL (79-100) Mean Corpuscular Hemoglobin 35 pg (25-35) Mean Corpuscular Hemoglobin Concent 35 g/dL (31-37) Red Cell Distribution Width 12.9 % (11.5-14.5) Platelet Count 134 x10^3/uL (140-400) Neutrophils (%) (Auto) 64 % (31-73) Lymphocytes (%) (Auto) 24 % (24-48) Monocytes (%) (Auto) 8 % (0-9) Eosinophils (%) (Auto) 3 % (0-3) Basophils (%) (Auto) 1 % (0-3) Neutrophils # (Auto) 4.8 x10^3/uL (1.8-7.7) Lymphocytes # (Auto) 1.8 x10^3/uL (1.0-4.8) Monocytes # (Auto) 0.6 x10^3/uL (0.0-1.1) Eosinophils # (Auto) 0.3 x10^3/uL (0.0-0.7) Basophils # (Auto) 0.0 x10^3/uL (0.0-0.2) Sodium Level 135 mmol/L (136-145) Potassium Level 3.8 mmol/L (3.5-5.1) Chloride Level 102 mmol/L (98-107) Carbon Dioxide Level 27 mmol/L (21-32) Anion Gap 6 (6-14) Blood Urea Nitrogen 9 mg/dL (8-26) Creatinine 0.8 mg/dL (0.7-1.3) Estimated GFR (Cockcroft-Gault) 98.3 Glucose Level 100 mg/dL (70-99) Calcium Level 8.9 mg/dL (8.5-10.1) Brief Hospital Course Mr Boyce is a 59 year old male with past medical history of HTN who presented with left-sided weakness. Symptoms started 8:19 PM on 10/25/2020. Witnessed by his . Started with facial droop and progressed rapidly to the left-sided weakness. He slumped in his chair. called EMS. On arrival the left-sided paralysis was evident to EMS. In route he began to have slurred speech. He is not on any blood thinning medications. No aspirin or Plavix. Only takes medications for hypertension. No history of previous stroke. CT head revealed 2 x 1.6 cm hemorrhage in right basal ganglia and no aneursyms on CTA. Admitted to ICU for care 10/26: Repeat CT unchanged, transferred out of ICU 10/27: Afebrile. No hypoxia. Unable to move his left hand or left leg. Is awaiting discussion for rehab. Replaced B12 IM. 10/28: Afebrile. Having some back pain. Blood pressure well controlled. Thinks he is able to wiggle his fingers with them dangling. Has some IV site pain on the right. Afebrile. Frustrated with his left-sided weakness. Plan is to go to acute rehab. Consults: Neurology, Neurosurgery Problem list: Left sided weakness - hemorrhagic CVA of right thalamus Hypertensive emergency - with acute CVA, hemorrhagic. Nicardipine gtt, transitioned to PO lisinopril Hypokalemia - replaced B12 deficiency - with Macrocytosis - IM replaced, will take sublingual H/o gout - cont allopurinol HLD - statin Plan: Keep systolic blood pressure 140 to 160. Checked lipid profile, started on statin. 2-D echo negative. PT OT speech evaluation Patient had repeat CT scan done brain showing stable right basal ganglia hematoma Greater than 30 minutes spent on d/c to acute rehab Discharge Information Condition at Discharge: Improved Follow Up: Weeks (1) Disposition/Orders: D/C to Another Facility Scheduled Allopurinol (Allopurinol) 300 Mg Tablet, 1 TAB PO DAILY for gout, #30 Ref 5 (Reported) Entered as Reported by: Manfred Mason on 10/26/20600 Last Action: Continued on 10/26/20 1022 by REJI DIALLO Atorvastatin Calcium (Atorvastatin Calcium) 20 Mg Tablet, 20 MG PO QHS for HLD for 30 Days, #30 Ref 11 Prescribed by: BAL MAZA MD on 10/29/20 1015 Lisinopril (Lisinopril) 40 Mg Tablet, 1 TAB PO DAILY for blood pressure, #30 Ref 5 (Reported) Entered as Reported by: Manfred Mason on 10/26/20 0601 Last Action: Continued on 10/26/20 1022 by REJI DIALLO Omeprazole Magnesium (Prilosec Otc) 20 Mg Tablet.dr, 20 MG PO DAILY, (Reported) Entered as Reported by: TOBY GARCIA on 11/17/17 1139 Last Action: Converted on 10/26/20 1022 by REJI DIALLO Psyllium Husk/Aspartame (Metamucil Fiber Singles Packet) 3.4 Gm Powd.pack, 1 PKT PO QHS for Constipation for 30 Days, #30 Prescribed by: BAL MAZA MD on 10/29/20 1015 Scheduled PRN Acetaminophen (Acetaminophen) 325 Mg Tablet, 650 MG PO PRN Q8HRS PRN for MILD PAIN / TEMP > 100.3'F for 30 Days, #120 Prescribed by: BAL MAZA MD on 10/29/20 1015 Dextran/Hypromellose/Glycerin (Genteal Tears 0.1%-0.2%-0.3%) 15 Ml Drops, 1 DROP OU PRN Q15MIN PRN for DRY EYE for 30 Days, #120 Prescribed by: BAL MAZA MD on 10/29/20 1015 [Nicotine 14MG] 1 PATCH PATCH, 1 PATCH TD PRN DAILY PRN for SMOKING CESSATION for 30 Days, #30 Ref 0 Prescribed by: BAL MAZA MD on 10/29/20 1015 Justicifation of Admission Dx: Justifications for Admission: Justification of Admission Dx: Yes BAL MAZA MD Oct 29, 2020 10:24
[2020-10-29 11:00] VITALS: BP 130/77
--- NOTE | 2020-10-29 11:47 | NUR ---
SS following up with discharge planning. SS reviewed pt chart and discussed with pt RN. Pt is currently on room air. COVID19 negative. PT/OT recommended acute rehabilitation. Pt accepted at [facility], ; fax [phone]. Insurance authorization received. Discharge orders phoned and faxed to [facility]. Pt will discharge today and go to [facility] at 1300. [facility] to provide transportation. Pt, pt's RN, and pt's spouse notified.
--- NOTE | 2020-10-29 13:23 | NUR ---
Called to [facility] was told to call Quirino for report [phone]. Written Prescriptions sent in chart with patient. IV removed without complications, catheter tip in tact. All belongings with patient, including cell phone, clothing, ect. Patient assisted off of unit with transport via gurney.
== END 2020-10-29 13:15 | DRG 65 ==
LOC: ER 21:16 → ED HOLD 23:40 → 1 WEST ICU 10-26 05:22 → 6 SOUTH 10-26 17:28
PROVIDERS: ADMIT Internal Medicine; ATTEND Internal Medicine
DX: I61.0 Nontraumatic intracerebral hemorrhage in hemisphere, subcortical (principal); G81.94 Hemiplegia, unspecified affecting left nondominant side; I16.1 Hypertensive emergency; I61.8 Other nontraumatic intracerebral hemorrhage; D75.89 Other specified diseases of blood and blood-forming organs; E53.8 Deficiency of other specified B group vitamins; E78.5 Hyperlipidemia, unspecified; E87.6 Hypokalemia; I10 Essential (primary) hypertension; I65.29 Occlusion and stenosis of unspecified carotid artery; R29.810 Facial weakness; Z83.3 Family history of diabetes mellitus; Z86.73 Personal history of transient ischemic attack (TIA), and cerebral infarction without residual deficits; Z20.822 Contact with and (suspected) exposure to COVID-19
CPT/HCPCS: 36415; 70450; 70496; 70498; 80048; 80061; 82607; 84484; 85025; 85610; 85730; 93005; 93306; 96365; 96366; J3420; J3490; J7050; Q9967; U0003; U0005; 97116-GP; 97530-GO; 97530-GP; 99285-25; J7030